=== PATIENT | male | born 1970 | race Caucasian/White ===

== ENCOUNTER 2016-06-04 12:11 | Inpatient (IN) | payer OTHER ==
[~2016-06-04] VITALS: Ht 188 cm; Wt 119.0 kg
[~2016-06-04 12:11] MED LIST: ALDACTONE25 MG PO; BG MC; CARVEDILOL3.125 M1; COLACE100 MG; COR6 PO; COUMADIN7.5 MG PO; DOC-Q-LACE100 MG PO; ECO81 PO; FAMOTIDINE20 MG PO; FLEXERIL10 MG PO; GLU500 PO; LASIX20 MG PO; LIO10 PO; LIPITOR40 MG; LIPITOR80 MG PO; LISINOPRIL2.5 MG PO; MOT600 PO; NOR10T PO; NORCO 5/325 TAB1 TA1 PO; PRI20 PO; PROAIR HFA0.09 MG/A1 INH; TYL325 PO; ZES10 PO; ZOC20 PO
[2016-06-04 13:13] LABS: BASOPHIL % 0.2 % (0-2); PLATELET COUNT 207 x10^3mcL (130-400)
[2016-06-04 13:26] LABS: RED CELL DISTRIBUTION WIDTH 21.2 % (11.5-14.5)
[2016-06-04 13:30] LABS: CALCIUM 8.9 mg/dL (8.5-10.1); CARBON DIOXIDE 26.6 mmol/L (21-32); CREATININE SERUM 1.5 mg/dL (0.7-1.3); POTASSIUM SERUM 4.6 mmol/L (3.5-5.1)
[2016-06-04 13:31] LABS: rbc morphology (normal/abnorm) ABNORMAL (NORMAL)
[2016-06-04 13:34] LABS: ALBUMIN 3.7 g/dL (3.4-5.0); BILIRUBIN TOTAL 1.01 mg/dL (0.20-1.00); TOTAL PROTEIN, SERUM 7.2 g/dL (6.4-8.2)
[2016-06-04 14:58] LABS: CHOLESTEROL/HDL RATIO 4.6; MAGNESIUM 1.9 mg/dL (1.8-2.4)
[2016-06-04 15:03] VITALS: BP 131/88
[2016-06-04 15:33] LABS: FREE T4 1.23 ng/dL (0.76-1.46); FREE THYROXINE INDEX 2.5 ug/dL (1.4-4.5); T4(THYROXINE) 6.8 ug/dL (4.7-13.3)
[2016-06-04 15:52] LABS: PHOSPHOROUS 3.6 mg/dL (2.5-4.9)
[2016-06-04 16:55] LABS: T3 TOTAL 1.11 ng/mL
[2016-06-04 18:53] VITALS: BP 147/95
[2016-06-04 21:22] VITALS: BP 132/90
[2016-06-04 23:38] LABS: UA SPECIFIC GRAVITY 1.025 (1.005-1.035); microscopic required? YES; urine erythrocyte 1+ (NEGATIVE)
[2016-06-04 23:49] LABS: AMPHETAMINE QUAL UR POSITIVE (NEG <=1000)
[2016-06-05 05:31] VITALS: BP 139/109
[2016-06-05 09:07] VITALS: BP 154/64
[2016-06-05 09:10] VITALS: BP 154/64
[2016-06-05 13:05] VITALS: BP 112/89
[2016-06-05 16:37] VITALS: BP 143/82
[2016-06-05 22:21] VITALS: BP 107/72
[2016-06-06 06:17] LABS: BASOPHIL % 0.3 % (0-2); PLATELET COUNT 257 x10^3mcL (130-400)
[2016-06-06 06:34] VITALS: BP 140/103
[2016-06-06 06:47] LABS: RED CELL DISTRIBUTION WIDTH 21.4 % (11.5-14.5)
[2016-06-06 06:57] LABS: CALCIUM 8.7 mg/dL (8.5-10.1); CARBON DIOXIDE 24.3 mmol/L (21-32); CREATININE SERUM 1.5 mg/dL (0.7-1.3); MAGNESIUM 1.9 mg/dL (1.8-2.4); PHOSPHOROUS 3.5 mg/dL (2.5-4.9); POTASSIUM SERUM 4.3 mmol/L (3.5-5.1)
[2016-06-06 15:00] VITALS: BP 122/88
[2016-06-06 21:31] VITALS: BP 110/83
[2016-06-07 05:52] VITALS: BP 127/89
[2016-06-07 06:18] LABS: BASOPHIL % 0.2 % (0-2); PLATELET COUNT 248 x10^3mcL (130-400)
[2016-06-07 06:32] LABS: CALCIUM 8.7 mg/dL (8.5-10.1); CARBON DIOXIDE 22.5 mmol/L (21-32); CHLORIDE SERUM 99 mmol/L (98-107); CREATININE SERUM 1.3 mg/dL (0.7-1.3); GFR1 > 60 mL/min; GLUCOSE SERUM 91 mg/dL (74-106); MAGNESIUM 1.9 mg/dL (1.8-2.4); PHOSPHOROUS 3.3 mg/dL (2.5-4.9); POTASSIUM SERUM 4.2 mmol/L (3.5-5.1); SODIUM SERUM 134 mmol/L (136-145)
[2016-06-07 06:37] LABS: RED CELL DISTRIBUTION WIDTH 20.9 % (11.5-14.5)
[2016-06-07 06:38] LABS: rbc morphology (normal/abnorm) ABNORMAL (NORMAL)
[2016-06-07 10:56] VITALS: BP 121/85
[2016-06-07 14:31] VITALS: BP 139/91
[2016-06-07 21:51] VITALS: BP 105/82
[2016-06-08 06:21] VITALS: BP 119/71
[2016-06-08 08:54] LABS: CALCIUM 8.4 mg/dL (8.5-10.1); CHLORIDE SERUM 93 mmol/L (98-107); CREATININE SERUM 1.2 mg/dL (0.7-1.3); GFR1 > 60 mL/min; GLUCOSE SERUM 168 mg/dL (74-106); POTASSIUM SERUM 3.9 mmol/L (3.5-5.1); SODIUM SERUM 127 mmol/L (136-145)
[2016-06-08 08:56] LABS: PLATELET COUNT 232 x10^3mcL (130-400)
[2016-06-08 09:05] LABS: RED CELL DISTRIBUTION WIDTH 21.2 % (11.5-14.5)
[2016-06-08 09:06] LABS: rbc morphology (normal/abnorm) ABNORMAL (NORMAL)
[2016-06-08 09:44] VITALS: BP 116/66
[2016-06-08 12:37] VITALS: BP 116/66
== END 2016-06-08 12:50 | disposition home or self-care (01) | DRG 203 ==
LOC: ED 12:11 → DU 14:15 → MU 06-07 17:58
PROVIDERS: Emergency Medicine; Family Medicine; ADMIT Family Medicine
DX: M94.0 Chondrocostal junction syndrome [Tietze] (principal); N17.0 Acute kidney failure with tubular necrosis; I50.43 Acute on chronic combined systolic (congestive) and diastolic (congestive) heart failure; I42.7 Cardiomyopathy due to drug and external agent; D68.69 Other thrombophilia; E11.65 Type 2 diabetes mellitus with hyperglycemia; G89.29 Other chronic pain; M54.9 Dorsalgia, unspecified; E78.5 Hyperlipidemia, unspecified; D63.8 Anemia in other chronic diseases classified elsewhere; F12.10 Cannabis abuse, uncomplicated; F15.20 Other stimulant dependence, uncomplicated; T43.621A Poisoning by amphetamines, accidental (unintentional), initial encounter; Y92.018 Other place in single-family (private) house as the place of occurrence of the external cause
CPT/HCPCS: 80307; 83880; 84439; J1940; J2270; J2405; J3010; J7030; J7120; J7620; Q0092

== ENCOUNTER 2016-06-27 20:02 | Emergency (ER) | payer OTHER ==
[2016-06-27 21:31] LABS: CALCIUM 8.5 mg/dL (8.5-10.1); CARBON DIOXIDE 23.7 mmol/L (21-32); CREATININE SERUM 1.7 mg/dL (0.7-1.3); POTASSIUM SERUM 3.9 mmol/L (3.5-5.1)
[2016-06-27 21:34] LABS: BASOPHIL % 0.2 % (0-2)
[2016-06-27 21:39] LABS: RED CELL DISTRIBUTION WIDTH 18.7 % (11.5-14.5)
[2016-06-27 21:46] LABS: BILIRUBIN TOTAL 0.75 mg/dL (0.20-1.00); TOTAL PROTEIN, SERUM 7.1 g/dL (6.4-8.2)
[2016-06-27 21:47] LABS: ALBUMIN 3.2 g/dL (3.4-5.0)
[2016-06-27 22:04] LABS: CK-MB 3.6 ng/mL (0-3.6)
[2016-06-27 22:14] LABS: PLATELET COUNT 274 x10^3mcL (130-400)
[2016-06-27 22:39] VITALS: BP 141/83
== END 2016-06-27 23:23 | disposition home or self-care (01) ==
LOC: ED 20:02
PROVIDERS: Emergency Medicine
DX: R07.89 Other chest pain (principal); R53.1 Weakness; G43.909 Migraine, unspecified, not intractable, without status migrainosus; I50.9 Heart failure, unspecified; I48.91 Unspecified atrial fibrillation; I42.9 Cardiomyopathy, unspecified; G89.29 Other chronic pain; Z90.5 Acquired absence of kidney
CPT/HCPCS: 83880; J2270

== ENCOUNTER → 2016-07-03 | Emergency (ER) | payer OTHER ==
[2016-07-03 22:06] LABS: BASOPHIL % 0.2 % (0-2); PLATELET COUNT 259 x10^3mcL (130-400)
[2016-07-03 22:19] LABS: CALCIUM 9.2 mg/dL (8.5-10.1); CARBON DIOXIDE 23.7 mmol/L (21-32); CREATININE SERUM 1.5 mg/dL (0.7-1.3); POTASSIUM SERUM 4.5 mmol/L (3.5-5.1)
[2016-07-03 22:23] LABS: ALBUMIN 3.7 g/dL (3.4-5.0); BILIRUBIN TOTAL 0.5 mg/dL (0.20-1.00); MAGNESIUM 2.1 mg/dL (1.8-2.4); TOTAL PROTEIN, SERUM 7.2 g/dL (6.4-8.2)
[2016-07-04 01:58] VITALS: BP 155/89
== END ==
LOC: ED 20:43
PROVIDERS: Emergency Medicine
DX: M54.12 Radiculopathy, cervical region (principal); I48.91 Unspecified atrial fibrillation; I42.9 Cardiomyopathy, unspecified; G43.909 Migraine, unspecified, not intractable, without status migrainosus; I50.9 Heart failure, unspecified; Z86.73 Personal history of transient ischemic attack (TIA), and cerebral infarction without residual deficits; Z88.8 Allergy status to other drugs, medicaments and biological substances
CPT/HCPCS: 83880; Q0092

== ENCOUNTER 2016-07-21 02:21 | Inpatient (IN) | payer MEDICAID ==
[2016-07-21] VITALS (7 sets, daily range): BP systolic 122–138; BP diastolic 83–105
[~2016-07-21] VITALS: Ht 188 cm; Wt 122.1 kg
[2016-07-21 03:00] LABS: BASOPHIL % 1.2 % (0-2); CALCIUM 8.5 mg/dL (8.5-10.1); CARBON DIOXIDE 22.7 mmol/L (21-32); CHLORIDE SERUM 108 mmol/L (98-107); CREATININE SERUM 1.3 mg/dL (0.7-1.3); GFR1 > 60 mL/min; GLUCOSE SERUM 121 mg/dL (74-106); PLATELET COUNT 192 x10^3mcL (130-400); POTASSIUM SERUM 4.2 mmol/L (3.5-5.1); SODIUM SERUM 139 mmol/L (136-145)
[2016-07-21 03:01] LABS: RED CELL DISTRIBUTION WIDTH 17.2 % (11.5-14.5)
[2016-07-21 03:16] LABS: ALKALINE PHOSPHATASE 118 U/L (46-116); ALT/SGPT 53 U/L (16-63); AST/SGOT 33 U/L (15-37); BILIRUBIN TOTAL 0.35 mg/dL (0.20-1.00); TOTAL PROTEIN, SERUM 6.9 g/dL (6.4-8.2)
[2016-07-21 03:24] LABS: ALBUMIN 3.3 g/dL (3.4-5.0)
[2016-07-21 03:26] LABS: CK-MB 2.2 ng/mL (0-3.6)
[2016-07-21] MEDS ORDERED: COREG12.5 MG PO (04:20)
[2016-07-21 05:00] LABS: CHOLESTEROL/HDL RATIO 3.2
[2016-07-21 05:10] LABS: FREE T4 0.98 ng/dL (0.76-1.46); FREE THYROXINE INDEX 2.2 ug/dL (1.4-4.5); T4(THYROXINE) 6.3 ug/dL (4.7-13.3)
[2016-07-21 05:11] LABS: T3 TOTAL 1.09 ng/mL
[2016-07-21 12:54] LABS: UA SPECIFIC GRAVITY 1.015 (1.005-1.035); microscopic required? YES; urine erythrocyte TRACE (NEGATIVE)
[2016-07-21 12:57] LABS: AMPHETAMINE QUAL UR NONE DETECTED (NEG <=1000)
[2016-07-22 04:35] VITALS: BP 140/94
[2016-07-22 05:53] LABS: BASOPHIL % 0.4 % (0-2); PLATELET COUNT 190 x10^3mcL (130-400)
[2016-07-22 06:18] LABS: CALCIUM 8.8 mg/dL (8.5-10.1); CARBON DIOXIDE 20.5 mmol/L (21-32); CHLORIDE SERUM 107 mmol/L (98-107); CREATININE SERUM 1.2 mg/dL (0.7-1.3); GFR1 > 60 mL/min; GLUCOSE SERUM 112 mg/dL (74-106); MAGNESIUM 1.7 mg/dL (1.8-2.4); PHOSPHOROUS 3.2 mg/dL (2.5-4.9); POTASSIUM SERUM 4.1 mmol/L (3.5-5.1); SODIUM SERUM 139 mmol/L (136-145)
[2016-07-22 06:34] LABS: RED CELL DISTRIBUTION WIDTH 16.6 % (11.5-14.5)
[2016-07-22 09:35] VITALS: BP 140/106
[2016-07-22 10:04] LABS: IRON 56 ug/dL (65-170); TOTAL IRON BINDING CAPACITY 396 ug/dL (250-450)
[2016-07-22 10:20] LABS: RED BLOOD CELLS 4.61 M/mm3 (4.52-5.90)
[2016-07-22 13:48] VITALS: BP 131/93
[2016-07-22 16:38] VITALS: BP 153/112
[2016-07-22 22:37] VITALS: BP 130/87
[2016-07-23 06:03] VITALS: BP 142/106
[2016-07-23 06:28] LABS: CALCIUM 8.9 mg/dL (8.5-10.1); CARBON DIOXIDE 23.3 mmol/L (21-32); CHLORIDE SERUM 106 mmol/L (98-107); CREATININE SERUM 1.2 mg/dL (0.7-1.3); GFR1 > 60 mL/min; GLUCOSE SERUM 109 mg/dL (74-106); MAGNESIUM 1.8 mg/dL (1.8-2.4); PHOSPHOROUS 3.7 mg/dL (2.5-4.9); POTASSIUM SERUM 4.1 mmol/L (3.5-5.1); SODIUM SERUM 138 mmol/L (136-145)
[2016-07-23 07:08] LABS: BASOPHIL % 0.5 % (0-2); PLATELET COUNT 213 x10^3mcL (130-400)
[2016-07-23 07:09] LABS: RED CELL DISTRIBUTION WIDTH 17.2 % (11.5-14.5)
[2016-07-23 08:56] VITALS: Ht 188 cm; Wt 122.1 kg
[2016-07-23 09:26] VITALS: BP 142/83
== END 2016-07-23 11:25 | disposition left against medical advice (07) | DRG 203 ==
LOC: ED 02:21 → DU 03:58
PROVIDERS: Emergency Medicine; Family Medicine; ADMIT Family Medicine
DX: R07.9 Chest pain, unspecified (principal); D68.69 Other thrombophilia; I42.7 Cardiomyopathy due to drug and external agent; E11.59 Type 2 diabetes mellitus with other circulatory complications; E11.65 Type 2 diabetes mellitus with hyperglycemia; K21.9 Gastro-esophageal reflux disease without esophagitis; E83.42 Hypomagnesemia; I48.91 Unspecified atrial fibrillation; D64.9 Anemia, unspecified; F12.10 Cannabis abuse, uncomplicated; F15.21 Other stimulant dependence, in remission; Z68.34 Body mass index [BMI] 34.0-34.9, adult; Z79.1 Long term (current) use of non-steroidal anti-inflammatories (NSAID); Z79.82 Long term (current) use of aspirin; Z79.84 Long term (current) use of oral hypoglycemic drugs; Z95.810 Presence of automatic (implantable) cardiac defibrillator; Z91.19 Patient's noncompliance with other medical treatment and regimen; Z59.0 Homelessness
CPT/HCPCS: 83880; 84439; C9113; G0480; J2060; J2270; J7030; J7620; Q0092; Q0163

== ENCOUNTER 2016-09-04 03:31 | Inpatient (IN) | payer OTHER ==
[~2016-09-04] VITALS: Ht 188 cm; Wt 122.5 kg
[~2016-09-04 03:31] MED LIST changes: +COREG12.5 MG PO
[2016-09-04 04:33] LABS: BASOPHIL % 0.3 % (0-2); PLATELET COUNT 243 x10^3mcL (130-400)
[2016-09-04 04:34] LABS: CALCIUM 8.8 mg/dL (8.5-10.1); CARBON DIOXIDE 22.7 mmol/L (21-32); CREATININE SERUM 1.4 mg/dL (0.7-1.3); POTASSIUM SERUM 4.3 mmol/L (3.5-5.1)
[2016-09-04 04:35] LABS: RED CELL DISTRIBUTION WIDTH 17.1 % (11.5-14.5)
[2016-09-04 04:43] LABS: ALBUMIN 3.4 g/dL (3.4-5.0); BILIRUBIN TOTAL 0.72 mg/dL (0.20-1.00); TOTAL PROTEIN, SERUM 7.1 g/dL (6.4-8.2)
[2016-09-04] MEDS ORDERED: CARVEDILOL6.25 M1 PO (05:47)
[2016-09-04] MEDS ORDERED: LISINOPRIL10 MG PO (05:50)
[2016-09-04 06:05] VITALS: BP 104/107
[2016-09-04 08:02] LABS: MAGNESIUM 1.9 mg/dL (1.8-2.4); PHOSPHOROUS 3.8 mg/dL (2.5-4.9)
[2016-09-04 08:04] LABS: CHOLESTEROL/HDL RATIO 3.4
[2016-09-04 09:37] VITALS: BP 141/104
[2016-09-04 11:58] LABS: FREE T4 1.11 ng/dL (0.76-1.46); FREE THYROXINE INDEX 3.1 ug/dL (1.4-4.5); T3 TOTAL 1.15 ng/mL; T4(THYROXINE) 7.6 ug/dL (4.7-13.3)
[2016-09-04 12:48] VITALS: BP 132/104
[2016-09-04 17:05] VITALS: BP 134/96
[2016-09-04 20:44] VITALS: BP 133/101
[2016-09-04 22:51] LABS: UA SPECIFIC GRAVITY >=1.030 (1.005-1.035); microscopic required? YES; urine erythrocyte TRACE (NEGATIVE)
[2016-09-04 22:58] LABS: AMPHETAMINE QUAL UR POSITIVE (NEG <=1000)
[2016-09-05] VITALS (8 sets, daily range): BP systolic 102–139; BP diastolic 72–104
[2016-09-05 06:26] LABS: BASOPHIL % 0.7 % (0-2); PLATELET COUNT 219 x10^3mcL (130-400)
[2016-09-05 06:40] LABS: CALCIUM 8.6 mg/dL (8.5-10.1); CARBON DIOXIDE 22.5 mmol/L (21-32); CREATININE SERUM 1.4 mg/dL (0.7-1.3); POTASSIUM SERUM 4.4 mmol/L (3.5-5.1); RED CELL DISTRIBUTION WIDTH 16.7 % (11.5-14.5)
[2016-09-05] MEDS ORDERED: GOOD SENSE ASPI81 M3 PO (21:56)
[2016-09-06] VITALS (8 sets, daily range): BP systolic 97–139; BP diastolic 63–98
[2016-09-06 09:17] LABS: BASOPHIL % 0.9 % (0-2); PLATELET COUNT 230 x10^3mcL (130-400)
[2016-09-06 09:18] LABS: RED CELL DISTRIBUTION WIDTH 16.5 % (11.5-14.5)
[2016-09-06 09:19] LABS: CALCIUM 8.7 mg/dL (8.5-10.1); CARBON DIOXIDE 22.6 mmol/L (21-32); CREATININE SERUM 1.5 mg/dL (0.7-1.3); POTASSIUM SERUM 4.7 mmol/L (3.5-5.1)
[2016-09-06] MEDS ORDERED: COUMADIN7.5 MG PO (17:34)
[2016-09-07 05:19] VITALS: BP 144/98
[2016-09-07 07:21] LABS: CALCIUM 8.8 mg/dL (8.5-10.1); CARBON DIOXIDE 22.2 mmol/L (21-32); CHLORIDE SERUM 101 mmol/L (98-107); CREATININE SERUM 1.3 mg/dL (0.7-1.3); GFR1 > 60 mL/min; GLUCOSE SERUM 102 mg/dL (74-106); SODIUM SERUM 131 mmol/L (136-145)
[2016-09-07 07:29] LABS: BASOPHIL % 0.7 % (0-2); PLATELET COUNT 237 x10^3mcL (130-400)
[2016-09-07 07:35] LABS: RED CELL DISTRIBUTION WIDTH 16.9 % (11.5-14.5)
[2016-09-07] MEDS ORDERED: ATIVAN1 MG PO (09:44)
[2016-09-07 10:11] VITALS: BP 99/65
== END 2016-09-07 14:15 | disposition home or self-care (01) | DRG 243 ==
LOC: ED 03:31 → DU 05:17
PROVIDERS: Emergency Medicine; Family Medicine; ADMIT Family Medicine
DX: K21.9 Gastro-esophageal reflux disease without esophagitis (principal); I42.7 Cardiomyopathy due to drug and external agent; D68.69 Other thrombophilia; E11.65 Type 2 diabetes mellitus with hyperglycemia; E11.59 Type 2 diabetes mellitus with other circulatory complications; T43.621D Poisoning by amphetamines, accidental (unintentional), subsequent encounter; F15.188 Other stimulant abuse with other stimulant-induced disorder; F12.10 Cannabis abuse, uncomplicated; E87.1 Hypo-osmolality and hyponatremia; I48.91 Unspecified atrial fibrillation; J44.9 Chronic obstructive pulmonary disease, unspecified; I10 Essential (primary) hypertension; E66.9 Obesity, unspecified; Z68.34 Body mass index [BMI] 34.0-34.9, adult; Z59.0 Homelessness; Z95.810 Presence of automatic (implantable) cardiac defibrillator; Z79.01 Long term (current) use of anticoagulants
CPT/HCPCS: 83880; 84439; J1170; J2060; J2270; J2405; Q0092

== ENCOUNTER 2016-09-17 07:28 | Emergency (ER) | payer OTHER ==
[~2016-09-17 07:28] MED LIST changes: +ATIVAN1 MG PO; +CARVEDILOL6.25 M1 PO; +GOOD SENSE ASPI81 M3 PO; +LISINOPRIL10 MG PO
[2016-09-17 08:26] LABS: BASOPHIL % 1.9 % (0-2); PLATELET COUNT 305 x10^3mcL (130-400)
[2016-09-17 08:32] LABS: CALCIUM 8.4 mg/dL (8.5-10.1); CARBON DIOXIDE 22.5 mmol/L (21-32); CREATININE SERUM 1.4 mg/dL (0.7-1.3); POTASSIUM SERUM 4.2 mmol/L (3.5-5.1)
[2016-09-17 08:36] LABS: BILIRUBIN TOTAL 0.9 mg/dL (0.20-1.00); PHOSPHOROUS 3.2 mg/dL (2.5-4.9); RED CELL DISTRIBUTION WIDTH 18.3 % (11.5-14.5); URIC ACID 8.8 mg/dL (3.5-7.2)
[2016-09-17 08:38] LABS: ALBUMIN 3.1 g/dL (3.4-5.0)
[2016-09-17 13:57] VITALS: BP 151/101
== END 2016-09-17 14:32 | disposition home or self-care (01) ==
LOC: ED 07:28
PROVIDERS: Emergency Medicine
DX: I50.9 Heart failure, unspecified (principal); I11.0 Hypertensive heart disease with heart failure; G89.29 Other chronic pain; Z88.8 Allergy status to other drugs, medicaments and biological substances
CPT/HCPCS: 36415; 83880; Q0092

== ENCOUNTER 2016-10-03 23:41 | Emergency (ER) | payer OTHER ==
[2016-10-04 01:56] LABS: PLATELET COUNT 217 x10^3mcL (130-400)
[2016-10-04 01:57] LABS: BASOPHIL % 0.1 % (0-2)
[2016-10-04 02:04] LABS: CARBON DIOXIDE 23.4 mmol/L (21-32); CREATININE SERUM 1.5 mg/dL (0.7-1.3); POTASSIUM SERUM 4.4 mmol/L (3.5-5.1)
[2016-10-04 02:09] LABS: ALBUMIN 3.4 g/dL (3.4-5.0); BILIRUBIN TOTAL 0.73 mg/dL (0.20-1.00); TOTAL PROTEIN, SERUM 7.3 g/dL (6.4-8.2)
[2016-10-04 04:06] VITALS: BP 114/88
== END 2016-10-04 04:06 | disposition home or self-care (01) ==
LOC: ED 23:41
PROVIDERS: Emergency Medicine
DX: N20.0 Calculus of kidney (principal); I11.0 Hypertensive heart disease with heart failure; I48.91 Unspecified atrial fibrillation; I50.9 Heart failure, unspecified; G43.909 Migraine, unspecified, not intractable, without status migrainosus; I42.9 Cardiomyopathy, unspecified; Z95.1 Presence of aortocoronary bypass graft; Z88.6 Allergy status to analgesic agent
CPT/HCPCS: 36415; J2270; Q0092

== ENCOUNTER 2016-10-21 17:19 | Inpatient (IN) | payer OTHER ==
[~2016-10-21] VITALS: Ht 188 cm; Wt 110.0 kg
[2016-10-21 22:37] LABS: BASOPHIL % 0.6 % (0-2); PLATELET COUNT 206 x10^3mcL (130-400)
[2016-10-21] MEDS ORDERED: XARELTO STARTER20 MG (22:42)
[2016-10-21 22:49] LABS: CALCIUM 8.7 mg/dL (8.5-10.1); CARBON DIOXIDE 24.4 mmol/L (21-32); CREATININE SERUM 1.6 mg/dL (0.7-1.3)
[2016-10-21 22:50] LABS: RED CELL DISTRIBUTION WIDTH 19.4 % (11.5-14.5)
[2016-10-21 23:00] LABS: ALBUMIN 3.5 g/dL (3.4-5.0); BILIRUBIN TOTAL 0.98 mg/dL (0.20-1.00); TOTAL PROTEIN, SERUM 7.5 g/dL (6.4-8.2)
[2016-10-22 00:16] VITALS: BP 143/75
[2016-10-22 00:20] VITALS: BP 143/75
[2016-10-22 00:57] LABS: MAGNESIUM 1.8 mg/dL (1.8-2.4); PHOSPHOROUS 3.7 mg/dL (2.5-4.9)
[2016-10-22 00:59] LABS: CHOLESTEROL/HDL RATIO 4.6
[2016-10-22 01:07] LABS: T3 TOTAL 1.11 ng/mL
[2016-10-22 01:10] LABS: FREE T4 1.18 ng/dL (0.76-1.46); FREE THYROXINE INDEX 2.6 ug/dL (1.4-4.5); T4(THYROXINE) 6.6 ug/dL (4.7-13.3)
[2016-10-22 05:52] VITALS: BP 140/73
[2016-10-22 08:27] LABS: BASOPHIL % 0.9 % (0-2); PLATELET COUNT 190 x10^3mcL (130-400)
[2016-10-22 08:35] LABS: CALCIUM 8.7 mg/dL (8.5-10.1); CARBON DIOXIDE 20.5 mmol/L (21-32); CHLORIDE SERUM 106 mmol/L (98-107); CREATININE SERUM 1.3 mg/dL (0.7-1.3); GFR1 > 60 mL/min; GLUCOSE SERUM 93 mg/dL (74-106); POTASSIUM SERUM 3.6 mmol/L (3.5-5.1); SODIUM SERUM 137 mmol/L (136-145)
[2016-10-22 09:48] LABS: RED CELL DISTRIBUTION WIDTH 18.8 % (11.5-14.5)
[2016-10-22 10:00] VITALS: BP 144/79
[2016-10-22 17:18] VITALS: BP 118/73
[2016-10-22 21:25] VITALS: BP 124/98
[2016-10-22 23:17] LABS: microscopic required? YES; urine erythrocyte NEGATIVE (NEGATIVE)
[2016-10-22 23:35] LABS: AMPHETAMINE QUAL UR POSITIVE (NEG <=1000)
[2016-10-23 06:00] VITALS: BP 140/85
[2016-10-23 06:32] LABS: BASOPHIL % 0.7 % (0-2); PLATELET COUNT 171 x10^3mcL (130-400)
[2016-10-23 06:35] LABS: RED CELL DISTRIBUTION WIDTH 19.1 % (11.5-14.5)
[2016-10-23 13:42] VITALS: BP 130/92
[2016-10-23 18:00] VITALS: BP 144/94
[2016-10-23 21:14] VITALS: BP 112/79
[2016-10-24 06:25] VITALS: BP 128/89
[2016-10-24 08:16] LABS: BASOPHIL % 0.6 % (0-2); PLATELET COUNT 181 x10^3mcL (130-400)
[2016-10-24 08:17] LABS: RED CELL DISTRIBUTION WIDTH 18.8 % (11.5-14.5)
[2016-10-24 08:22] LABS: CALCIUM 8.3 mg/dL (8.5-10.1); CARBON DIOXIDE 26.5 mmol/L (21-32); CHLORIDE SERUM 104 mmol/L (98-107); CREATININE SERUM 1.3 mg/dL (0.7-1.3); GFR1 > 60 mL/min; GLUCOSE SERUM 102 mg/dL (74-106); POTASSIUM SERUM 4.3 mmol/L (3.5-5.1); SODIUM SERUM 137 mmol/L (136-145)
[2016-10-24 08:54] VITALS: BP 113/79
[2016-10-24 14:19] VITALS: BP 124/90
[2016-10-24 16:44] VITALS: BP 124/901
[2016-10-24 16:56] VITALS: BP 121/74
[2016-10-24 20:50] VITALS: BP 135/88
[2016-10-25 05:54] VITALS: BP 127/78
[2016-10-25 06:32] LABS: BASOPHIL % 0.4 % (0-2); PLATELET COUNT 211 x10^3mcL (130-400)
[2016-10-25 06:36] LABS: RED CELL DISTRIBUTION WIDTH 19.3 % (11.5-14.5)
[2016-10-25 07:03] LABS: CALCIUM 8.8 mg/dL (8.5-10.1); CARBON DIOXIDE 27.9 mmol/L (21-32); CHLORIDE SERUM 103 mmol/L (98-107); CREATININE SERUM 1.2 mg/dL (0.7-1.3); GFR1 > 60 mL/min; GLUCOSE SERUM 90 mg/dL (74-106); POTASSIUM SERUM 4.4 mmol/L (3.5-5.1); SODIUM SERUM 137 mmol/L (136-145)
[2016-10-25 08:49] VITALS: BP 149/99
[2016-10-25 13:42] VITALS: BP 133/85
[2016-10-25 16:58] VITALS: BP 126/76
[2016-10-25 20:41] VITALS: BP 127/86
[2016-10-26 05:25] VITALS: BP 119/86
[2016-10-26 06:17] LABS: BASOPHIL % 1.3 % (0-2); PLATELET COUNT 177 x10^3mcL (130-400)
[2016-10-26 06:20] LABS: RED CELL DISTRIBUTION WIDTH 19.2 % (11.5-14.5)
[2016-10-26 08:51] VITALS: BP 143/92
[2016-10-26 13:54] VITALS: BP 143/87
[2016-10-26 15:43] VITALS: BP 135/83
[2016-10-26 22:25] VITALS: BP 122/70
[2016-10-27 06:37] LABS: BASOPHIL % 1.1 % (0-2); PLATELET COUNT 186 x10^3mcL (130-400)
[2016-10-27 06:40] LABS: RED CELL DISTRIBUTION WIDTH 18.8 % (11.5-14.5)
[2016-10-27 09:26] VITALS: Ht 188 cm; Wt 110.0 kg
[2016-10-27] MEDS ORDERED: TRE400 PO (09:42)
[2016-10-27] MEDS ORDERED: COL100 PO (09:49)
[2016-10-27] MEDS ORDERED: HYDROCODONE BIT1 T30 PO (10:23)
[2016-10-27 13:05] VITALS: BP 144/96
[2016-10-27 13:18] VITALS: BP 130/86
== END 2016-10-27 15:45 | disposition home or self-care (01) | DRG 351 ==
LOC: ED 17:19 → DU 22:39
PROVIDERS: Emergency Medicine; Family Medicine; ADMIT Family Medicine
PROC: 05HM33Z Insertion of Infusion Device into Right Internal Jugular Vein, Percutaneous Approach (ICD-10-PCS; principal; 2016-10-23)
DX: T79.A22A Traumatic compartment syndrome of left lower extremity, initial encounter (principal); N17.0 Acute kidney failure with tubular necrosis; I42.9 Cardiomyopathy, unspecified; Q61.3 Polycystic kidney, unspecified; E11.51 Type 2 diabetes mellitus with diabetic peripheral angiopathy without gangrene; I48.2 Chronic atrial fibrillation; I65.22 Occlusion and stenosis of left carotid artery; E11.65 Type 2 diabetes mellitus with hyperglycemia; J44.9 Chronic obstructive pulmonary disease, unspecified; F15.10 Other stimulant abuse, uncomplicated; F12.10 Cannabis abuse, uncomplicated; F10.10 Alcohol abuse, uncomplicated; E66.9 Obesity, unspecified; Z68.31 Body mass index [BMI] 31.0-31.9, adult; Z95.0 Presence of cardiac pacemaker; Z79.01 Long term (current) use of anticoagulants; X58.XXXA Exposure to other specified factors, initial encounter
CPT/HCPCS: 83880; 84439; 97110-GP; G0480; J1170; J1642; J1644; J2060; J2270; J2405; J3010; J7030; Q0092; Q9967

== ENCOUNTER 2016-12-26 21:21 | Emergency (ER) | payer OTHER ==
[~2016-12-26] VITALS: Ht 188 cm; Wt 117.9 kg
[~2016-12-26 21:21] MED LIST changes: +COL100 PO; +HYDROCODONE BIT1 T30 PO; +TRE400 PO; +XARELTO STARTER20 MG
[2016-12-26 22:53] LABS: BASOPHIL % 0.8 % (0-2); PLATELET COUNT 238 x10^3mcL (130-400)
[2016-12-26 22:59] LABS: RED CELL DISTRIBUTION WIDTH 20.7 % (11.5-14.5)
[2016-12-26 23:00] LABS: CALCIUM 8.9 mg/dL (8.5-10.1); CARBON DIOXIDE 20.3 mmol/L (21-32); CREATININE SERUM 1.7 mg/dL (0.7-1.3); POTASSIUM SERUM 4.4 mmol/L (3.5-5.1)
[2016-12-26 23:10] LABS: ALBUMIN 3.6 g/dL (3.4-5.0); BILIRUBIN TOTAL 1.9 mg/dL (0.20-1.00)
[2016-12-26 23:11] LABS: ovalocyte/elliptocyte 1+; rbc morphology (normal/abnorm) ABNORMAL (NORMAL)
[2016-12-27 00:17] VITALS: BP 115/82
== END 2016-12-27 00:17 | disposition home or self-care (01) ==
LOC: ED 21:21
PROVIDERS: Emergency Medicine
DX: R07.89 Other chest pain (principal); R20.2 Paresthesia of skin; G43.909 Migraine, unspecified, not intractable, without status migrainosus; G89.29 Other chronic pain; M54.9 Dorsalgia, unspecified; I11.0 Hypertensive heart disease with heart failure; I50.9 Heart failure, unspecified; I48.91 Unspecified atrial fibrillation; I42.9 Cardiomyopathy, unspecified; Q60.0 Renal agenesis, unilateral; Z86.79 Personal history of other diseases of the circulatory system; Z88.8 Allergy status to other drugs, medicaments and biological substances; Z95.0 Presence of cardiac pacemaker
CPT/HCPCS: 36415; 83880; J0780; J1200; Q0092

== ENCOUNTER 2017-01-17 16:35 | Inpatient (IN) | payer OTHER ==
[~2017-01-17] VITALS: Ht 185.4 cm; Wt 97.5 kg
--- NOTE | 2017-01-17 19:11 | NUR ---
DR CERVANTES AT BEDSIDE FOR MSE.
[2017-01-17] MEDS ORDERED: FUROSEMIDE20 MG PO (19:53)
[2017-01-17 19:57] LABS: BASOPHIL % 0.5 % (0-2); PLATELET COUNT 253 x10^3mcL (130-400)
[2017-01-17 20:05] LABS: CALCIUM 8.9 mg/dL (8.5-10.1); CARBON DIOXIDE 20.8 mmol/L (21-32); CHLORIDE SERUM 107 mmol/L (98-107); CREATININE SERUM 1.2 mg/dL (0.7-1.3); GFR1 > 60 mL/min; GLUCOSE SERUM 108 mg/dL (74-106); POTASSIUM SERUM 5.1 mmol/L (3.5-5.1); SODIUM SERUM 135 mmol/L (136-145)
[2017-01-17 20:09] LABS: ALBUMIN 3.4 g/dL (3.4-5.0); ALKALINE PHOSPHATASE 124 U/L (46-116); ALT/SGPT 60 U/L (16-63); AST/SGOT 45 U/L (15-37); BILIRUBIN TOTAL 0.78 mg/dL (0.20-1.00); RED CELL DISTRIBUTION WIDTH 22.6 % (11.5-14.5)
--- NOTE | 2017-01-17 20:36 | NUR ---
REPORT CALLED TO RANDEE ESCOBAR TO ASSUME CARE OF PT POST TRANSFER TO [facility].
[2017-01-17 20:57] LABS: FREE T4 0.81 ng/dL (0.76-1.46); FREE THYROXINE INDEX 2.4 ug/dL (1.4-4.5); T3 TOTAL 1.04 ng/mL; T4(THYROXINE) 6.4 ug/dL (4.7-13.3)
[2017-01-17 21:01] LABS: tear drop cell (dacryocyte) 1+
[2017-01-17 21:02] LABS: rbc morphology (normal/abnorm) ABNORMAL (NORMAL)
[2017-01-17 21:10] LABS: PHOSPHOROUS 3.2 mg/dL (2.5-4.9)
--- NOTE | 2017-01-17 21:18 | NUR ---
REC'D PT FROM ER VIA [facility]. PT IS AAOX4. TELE #36 SR WITH BBB. DENIES CP. RESP EVEN AND UNLABORED. NO SOB NOTED. MULTIPLE OPEN AND DRY SCABS NOTED TO BUE. IV NOTED TO . ORIENTED PT TO CALL LIGHT. BED IN LOWEST POSITION. WILL ENDORSE TO PRIMARY RN.
--- NOTE | 2017-01-17 21:20 | NUR ---
RECEIVED REPORT FROM ED AND RESOURCE RN MARCIA. NO C/O PAIN AT THIS TIME. NO DISTRESS NOTED. IV SITE TO LEFT HAND NOTED, PATENT AND INTACT. BED IN LOWEST POSITION. CALL LIGHT WITHIN REACH. WILL CONTINUE TO MONITOR.
[2017-01-17 21:29] VITALS: BP 127/89
[2017-01-17 21:51] LABS: TOTAL PROTEIN, SERUM 7.9 g/dL (6.4-8.2)
--- NOTE | 2017-01-18 05:11 | NUR ---
PATIENT RESTED THROUGHOUT THE NIGHT. NO C/O CHEST PAIN SINCE ARRIVING ON UNIT. NO DISTRESS NOTED. ALL NEEDS MET. SAFETY AND COMFORT MEASURES MAINTAINED. BED IN LOWEST POSITION. CALL LIGHT WITHIN REACH. WILL CONTINUE TO MONITOR AND ENDORSE CARE TO NEXT SHIFT NURSE.
[2017-01-18 06:17] VITALS: BP 126/86
--- NOTE | 2017-01-18 06:18 | NUR ---
PATIENT REFUSES TO WEAR SCD'S.
[2017-01-18 07:17] LABS: BASOPHIL % 0.8 % (0-2); PLATELET COUNT 254 x10^3mcL (130-400)
[2017-01-18 07:18] LABS: microscopic required? NO
[2017-01-18 07:19] LABS: RED CELL DISTRIBUTION WIDTH 22.9 % (11.5-14.5)
[2017-01-18 07:21] LABS: rbc morphology (normal/abnorm) ABNORMAL (NORMAL); tear drop cell (dacryocyte) 1+
[2017-01-18 07:30] LABS: CALCIUM 9.5 mg/dL (8.5-10.1); CARBON DIOXIDE 22.8 mmol/L (21-32); CREATININE SERUM 1.4 mg/dL (0.7-1.3); POTASSIUM SERUM 4.7 mmol/L (3.5-5.1)
--- NOTE | 2017-01-18 07:40 | NUR ---
RC'D PT RESTING IN BED. A/A/O/X4, SPEECH CLEAR AND APPROPRIATE. ON TELE WITH SR WITH BBB. DENIES CHEST PAIN/PRESSURE. PALP PULSES, NO EDEMA NOTED. RESPIRATIONS EQUAL AND UNLABORED. LUNGS CTA. ON RA, DENIES SOB. ABDOMEN SOFT AND NONTENDER. ACTIVE BS. DENIES N/V. VOIDS FREELY, DENIES BURNING. AMBULATORY WITH BRP. SKIN W/D. BUE DRY SCABS NOTED. DENIES PAIN AT THIS TIME. IV PATENT AND INFUSING. BED IN LOW POSITION. CALL LIGHT IN REACH. PT EDUCATED ON USING CALL LIGHT WHEN NEEDING ASSISTANCE. VERBALIZED UNDERSTANDING. WILL CONTINUE TO MONITOR.
[2017-01-18 08:05] LABS: urine erythrocyte NEGATIVE (NEGATIVE)
[2017-01-18 08:11] LABS: AMPHETAMINE QUAL UR POSITIVE (NEG <=1000)
--- NOTE | 2017-01-18 09:45 | NUR ---
AM MEDICATIONS GIVEN. PT TOLERATED WELL. CALL LIGHT IN REACH. WILL CONTINUE TO MONITOR
[2017-01-18 09:56] VITALS: BP 107/63
[2017-01-18 11:14] VITALS: Ht 185.4 cm; Wt 97.5 kg
--- NOTE | 2017-01-18 12:41 | NUR ---
PT RESTING IN BED WITH NO APPARENT SIGNS OF DISTRESS. RESPIRATIONS EQUAL AND UNLABORED BILAT. CALL LIGHT IN REACH. WILL CONTINUE TO MONITOR.
[2017-01-18 14:19] VITALS: BP 121/88
[2017-01-18 17:27] VITALS: BP 108/72
--- NOTE | 2017-01-18 19:00 | NUR ---
PT RESTING IN BED. PT AWARE THAT HE IS CURRENTLY NPO DUE PENDING US OF THE ABDOMEN . ON TELE, DENIES CHEST PAIN/PRESSURE. RESPIRATIONS EQUAL AND UNLABORED. IV PATENT AND INFUSING. BED IN LOW POSITION. CALL LIGHT IN REACH. WILL ENDORSE TO FLOWER SHOP MANAGER RN.
--- NOTE | 2017-01-18 19:40 | NUR ---
PT RESTING IN BED APPEARS TO BE DROWSY BUT RESPONDS TO VERBAL STIMULI. PT BECOMES AGITATED AND APPEARS TO BE BOTHERED WHEN SPOKEN TO. PT AWAITING HIS ABD US AND WOULD LIKE TO EAT HIS DINNER AFTERWARDS. NO INDICATION OF DISTRESS NOTED. PT DENIES PAIN, CHEST DISCOMFORT OR SOB AT THIS TIME. IV FLUID INFUSING PER MD ORDER. IV SITE PATENT AND INTACT. NO REDNESS, SWELLING OR PAIN NOTED AT SITE. ALL SAFETY MEASURES ENSURED. CALL LIGHT AND PERSONAL BELONGINGS WITHIN REACH. WILL CONTINUE TO MONITOR.
[2017-01-18 21:00] VITALS: BP 127/85
--- NOTE | 2017-01-19 01:59 | NUR ---
PT SLEEPING AT THIS TIME. NO DISTRESS NOTED. BREATHING NON-LABORED WITH NO DIFFICULTY NOTED. SAFETY MEASURES ENSURED. CALL LIGHT AND PERSONAL BELONGINGS WITHIN REACH. WILL CONTINUE TO MONITOR.
[2017-01-19 05:17] VITALS: BP 108/69
--- NOTE | 2017-01-19 06:33 | NUR ---
PT SLEPT THROUGH MAJORITY OF NIGHT KEEPING INTERRUPTIONS TO A MINIMUM PER PT REQUEST TO NOT BE WOKEN UP OR BOTHERED. NO ACUTE CHANGES IN CONDITION NOTED THROUGH THE NIGHT. NO C/O OF CHEST PAIN OR SOB NOTED. ALL NEEDS ASSESSED AND MET. IV FLUIDS INFUSING PER MD ORDER. IV SITE PATENT AND INTACT. PT ATE 75% OF HIS DINNER AFTER US ABD WAS COMPLETED. PT WAS ALSO GIVEN SNACKS AROUND 0430 THIS MORNING PER PT REQUEST. ALL SAFETY MEASURES MAINTAINED. CALL LIGHT AND PERSONAL BELONGINGS WITHIN REACH. WILL CONTINUE TO MONITOR.
--- NOTE | 2017-01-19 07:30 | NUR ---
RECEIVED PATIENT RESTING IN BED A/O X4, CLEAR SPEECH, DENIES LEGGETT OR DIZZINESS AT THIS TIME. TELE # [address], C/O PRESSURE LIKE CHEST PAIN 09/19 OFFERED NITRO SL (SEE eMAR) BUT PATIENT REFUSED, WILL MEDICATE PATIENT WITH NORCO FOR CHEST PAIN (SEE eMAR). PATIENT IS BREATHING EVEN UNLABBORED ON RA, DENIES SOB, NO DISTRESS NOTED. IV TO LH INTACT INFUSING NS AT 20 ML/HR FREE FROM REDNESS AND INFILTRATION. PATIENT IS CALM AT THIS TIME. INSTRUCTED TO CALL FOR ASSISTANCE IF NEEDED. SAFETY PRECAUTIONS MAINTAINED. WILL MONITOR.
[2017-01-19 09:45] VITALS: BP 129/86
--- NOTE | 2017-01-19 10:00 | NUR ---
ROUNDS MADE- DR. OSULLIVAN, RESIDENT TEAM, CHARGE NURSE AND PRIMARY NURSE AT BEDSIDE. POC REVIEWED- PATIENT MAY BE DISCHARGED HOME TODAY. WILL MONITOR.
--- NOTE | 2017-01-19 12:24 | NUR ---
DR. GELLER AT BEDSIDE TO SPEAK WITH PATIENT REGARDING PLAN OF CARE. DR. GELLER WILL SPEAK WITH CM REGARDING AVAILABLE RESOURCES/REHAB FOR PATIENT. ALL QUESTIONS AND CONCERNS ADDRESSED. WILL MONITOR.
--- NOTE | 2017-01-19 14:00 | NUR ---
PATIENT C/O PRESSURE LIKE CHEST PAIN 5/10, NORCO 7.5/325 1 TAB PO Q4H PRN GIVEN AT THIS TIME. ALL NEEDS ATTENDED TO. SAFETY PRECAUTIONS MAINTAINED. WILL MONITOR.
[2017-01-19] MEDS ORDERED: TYL325 PO (14:34)
[2017-01-19 14:35] VITALS: BP 111/75
[2017-01-19 14:46] VITALS: BP 111/75
--- NOTE | 2017-01-19 15:15 | NUR ---
DR. GELLER AT BEDSIDE TO SPEAK WITH PATIENT REGARDING DISCHARGE ORDERS. ALL QUESTIONS AND CONCERNS ADDRESSED. PATIENT IS STABLE FOR DISCHARGE HOME TODAY. DISCHARGE INSTRUCTIONS, BELONGINGS LIST AND EDUCATION GIVEN TO PATIENT. ALL QUESTIONS AND CONCERNS ADDRESSED. SPOKE WITH RACHEL FIELD SALES EXECUTIVE AND WILL PROVIDE PATIENT WITH BUS PASS. IV TO LH REMOVED, CATH INTACT. INSTRUCTED PATIENT TO NOTIFY STAFF ONCE HE IS READY TO BE ASSISTED DOWN TO LOBBY. WILL MONITOR.
--- NOTE | 2017-01-19 15:30 | NUR ---
PATIENT IN STABLE CONDITION NO DISTRESS NOTED. TELE MONITOR REMOVED, ID BANDS REMOVED. PATIENT ASSISTED DOWN TO LOBBY VIA WHEELCHAIR ACCOMPANIED BY NURSE AID. BUS PASSESS PROVIDED AND GIVEN TO PATIENT. ALL PERSONAL BELONGINGS SENT HOME WITH PATIENT.
== END 2017-01-19 15:30 | disposition home or self-care (01) | DRG 194 ==
LOC: ED 16:35 → DU 19:29
PROVIDERS: Emergency Medicine; Student in an Organized Health Care Education/Training Program; ADMIT Family Medicine
DX: I50.43 Acute on chronic combined systolic (congestive) and diastolic (congestive) heart failure (principal); N17.0 Acute kidney failure with tubular necrosis; Q60.0 Renal agenesis, unilateral; E87.1 Hypo-osmolality and hyponatremia; I42.9 Cardiomyopathy, unspecified; I48.2 Chronic atrial fibrillation; F15.188 Other stimulant abuse with other stimulant-induced disorder; F12.10 Cannabis abuse, uncomplicated; E11.9 Type 2 diabetes mellitus without complications; E78.5 Hyperlipidemia, unspecified; Z86.14 Personal history of Methicillin resistant Staphylococcus aureus infection; Z95.810 Presence of automatic (implantable) cardiac defibrillator; Z86.73 Personal history of transient ischemic attack (TIA), and cerebral infarction without residual deficits; Z79.01 Long term (current) use of anticoagulants; Z79.82 Long term (current) use of aspirin; Z79.891 Long term (current) use of opiate analgesic; Z59.0 Homelessness; Z68.28 Body mass index [BMI] 28.0-28.9, adult
CPT/HCPCS: 83880; 84439; 85378; G0480; J1200; J1940; J2270; J7030; Q0092

== ENCOUNTER 2017-03-16 16:19 | Inpatient (IN) | payer OTHER ==
[~2017-03-16] VITALS: Ht 185.4 cm; Wt 94.8 kg
[~2017-03-16 16:19] MED LIST changes: +FUROSEMIDE20 MG PO
[2017-03-16 17:33] LABS: BASOPHIL % 0.8 % (0-2); PLATELET COUNT 314 x10^3mcL (130-400)
[2017-03-16 17:35] LABS: CARBON DIOXIDE 26.4 mmol/L (21-32); CREATININE SERUM 1.6 mg/dL (0.7-1.3); POTASSIUM SERUM 4.1 mmol/L (3.5-5.1)
[2017-03-16 17:40] LABS: RED CELL DISTRIBUTION WIDTH 21.2 % (11.5-14.5)
[2017-03-16 17:41] LABS: ALBUMIN 3.7 g/dL (3.4-5.0); BILIRUBIN TOTAL 1.03 mg/dL (0.20-1.00); TOTAL PROTEIN, SERUM 7.8 g/dL (6.4-8.2)
[2017-03-16] MEDS ORDERED: XARELTO20 M1 (19:48)
[2017-03-16 20:08] VITALS: BP 136/90
[2017-03-16 20:08] LABS: AMPHETAMINE QUAL UR POSITIVE (NEG <=1000)
[2017-03-16 20:10] LABS: UA SPECIFIC GRAVITY 1.025 (1.005-1.035); microscopic required? YES; urine erythrocyte NEGATIVE (NEGATIVE)
[2017-03-16 20:19] LABS: T3 TOTAL 0.84 ng/mL
[2017-03-16 20:34] LABS: CHOLESTEROL/HDL RATIO 3.5; MAGNESIUM 2.2 mg/dL (1.8-2.4); PHOSPHOROUS 3.5 mg/dL (2.5-4.9)
[2017-03-16 20:42] LABS: FREE T4 1.03 ng/dL (0.76-1.46); FREE THYROXINE INDEX 2.4 ug/dL (1.4-4.5); T4(THYROXINE) 6.4 ug/dL (4.7-13.3)
[2017-03-17 06:10] LABS: PLATELET COUNT 248 x10^3mcL (130-400)
[2017-03-17 06:13] VITALS: BP 122/81
[2017-03-17 06:16] LABS: CALCIUM 8.3 mg/dL (8.5-10.1); CARBON DIOXIDE 25.6 mmol/L (21-32); CHLORIDE SERUM 104 mmol/L (98-107); CREATININE SERUM 1.3 mg/dL (0.7-1.3); GFR1 > 60 mL/min; GLUCOSE SERUM 128 mg/dL (74-106); SODIUM SERUM 136 mmol/L (136-145)
[2017-03-17 06:24] LABS: RED CELL DISTRIBUTION WIDTH 21.5 % (11.5-14.5)
[2017-03-17 09:38] VITALS: BP 144/96
[2017-03-17 12:26] VITALS: BP 125/86
[2017-03-17 16:01] VITALS: Ht 185.4 cm; Wt 94.8 kg
[2017-03-17 16:22] VITALS: BP 110/73
[2017-03-17 22:03] VITALS: BP 119/77
[2017-03-18 05:30] VITALS: BP 125/90
[2017-03-18 06:45] LABS: CALCIUM 8.6 mg/dL (8.5-10.1); CARBON DIOXIDE 24.7 mmol/L (21-32); CHLORIDE SERUM 105 mmol/L (98-107); CREATININE SERUM 1.3 mg/dL (0.7-1.3); GFR1 > 60 mL/min; GLUCOSE SERUM 92 mg/dL (74-106); MAGNESIUM 1.9 mg/dL (1.8-2.4); POTASSIUM SERUM 4.1 mmol/L (3.5-5.1); SODIUM SERUM 138 mmol/L (136-145)
[2017-03-18 08:09] LABS: BASOPHIL % 0.8 % (0-2); PLATELET COUNT 269 x10^3mcL (130-400); RED CELL DISTRIBUTION WIDTH 21.5 % (11.5-14.5)
[2017-03-18 09:17] VITALS: BP 121/74
[2017-03-18 13:07] VITALS: BP 118/83
[2017-03-18 17:05] VITALS: BP 112/80
[2017-03-18 21:48] VITALS: BP 116/77
[2017-03-19 00:56] VITALS: BP 108/75
[2017-03-19 05:38] VITALS: BP 115/77
[2017-03-19 05:56] LABS: BASOPHIL % 0.9 % (0-2); PLATELET COUNT 299 x10^3mcL (130-400)
[2017-03-19 06:05] LABS: RED CELL DISTRIBUTION WIDTH 21.4 % (11.5-14.5)
[2017-03-19 06:25] LABS: CALCIUM 8.9 mg/dL (8.5-10.1); CARBON DIOXIDE 25.3 mmol/L (21-32); CREATININE SERUM 1.4 mg/dL (0.7-1.3); POTASSIUM SERUM 4.1 mmol/L (3.5-5.1)
[2017-03-19 07:09] LABS: rbc morphology (normal/abnorm) ABNORMAL (NORMAL)
[2017-03-19 10:34] VITALS: BP 117/72
[2017-03-19 13:45] VITALS: BP 116/81
[2017-03-19 21:26] VITALS: BP 102/69
[2017-03-20 05:18] VITALS: BP 100/65
[2017-03-20 09:16] LABS: CALCIUM 9.4 mg/dL (8.5-10.1); CARBON DIOXIDE 23.8 mmol/L (21-32); CREATININE SERUM 1.5 mg/dL (0.7-1.3); MAGNESIUM 2.1 mg/dL (1.8-2.4); POTASSIUM SERUM 4.5 mmol/L (3.5-5.1)
[2017-03-20 09:49] VITALS: BP 111/78
[2017-03-20 09:52] LABS: BASOPHIL % 0.7 % (0-2); PLATELET COUNT 285 x10^3mcL (130-400)
[2017-03-20 09:53] LABS: RED CELL DISTRIBUTION WIDTH 21.1 % (11.5-14.5)
[2017-03-20] MEDS ORDERED: HIB240 TOP (09:53)
[2017-03-20 09:54] LABS: rbc morphology (normal/abnorm) ABNORMAL (NORMAL)
[2017-03-20] MEDS ORDERED: BACTROBAN21 (09:54)
[2017-03-20 12:42] VITALS: BP 111/78
[2017-03-20 12:57] VITALS: BP 130/91
== END 2017-03-20 14:12 | disposition home or self-care (01) | DRG 194 ==
LOC: ED 16:19 → DU 19:12
PROVIDERS: Emergency Medicine; Family Medicine
DX: I11.0 Hypertensive heart disease with heart failure (principal); N17.0 Acute kidney failure with tubular necrosis; K21.9 Gastro-esophageal reflux disease without esophagitis; I50.43 Acute on chronic combined systolic (congestive) and diastolic (congestive) heart failure; E11.51 Type 2 diabetes mellitus with diabetic peripheral angiopathy without gangrene; N28.1 Cyst of kidney, acquired; K76.0 Fatty (change of) liver, not elsewhere classified; I48.0 Paroxysmal atrial fibrillation; G89.29 Other chronic pain; I42.0 Dilated cardiomyopathy; R74.0 Nonspecific elevation of levels of transaminase and lactic acid dehydrogenase [LDH]; F12.10 Cannabis abuse, uncomplicated; F15.188 Other stimulant abuse with other stimulant-induced disorder; Z95.0 Presence of cardiac pacemaker; Z79.01 Long term (current) use of anticoagulants; Z79.82 Long term (current) use of aspirin; Z88.8 Allergy status to other drugs, medicaments and biological substances; Z86.14 Personal history of Methicillin resistant Staphylococcus aureus infection
CPT/HCPCS: 83880; 84439; G0480; J1200; J2270; J7030; Q0092; Q0163

== ENCOUNTER 2017-06-11 17:42 | Emergency (ER) | payer SELFPAY ==
[~2017-06-11] VITALS: Ht 188 cm; Wt 117.0 kg
[~2017-06-11 17:42] MED LIST changes: +BACTROBAN21; +HIB240 TOP; +XARELTO20 M1
[2017-06-11 17:52] VITALS: Ht 188 cm; Wt 117.0 kg
[2017-06-11 18:46] LABS: BASOPHIL % 0.7 % (0-2); PLATELET COUNT 149 x10^3mcL (130-400)
[2017-06-11 18:49] LABS: RED CELL DISTRIBUTION WIDTH 19.1 % (11.5-14.5)
[2017-06-11 19:01] LABS: CALCIUM 8.3 mg/dL (8.5-10.1); CARBON DIOXIDE 25.7 mmol/L (21-32); CHLORIDE SERUM 109 mmol/L (98-107); CREATININE SERUM 1.2 mg/dL (0.7-1.3); GFR1 > 60 mL/min; GLUCOSE SERUM 127 mg/dL (74-106); SODIUM SERUM 141 mmol/L (136-145)
[2017-06-11 19:04] VITALS: BP 136/93
[2017-06-11 19:05] LABS: ALBUMIN 3.4 g/dL (3.4-5.0); ALKALINE PHOSPHATASE 94 U/L (46-116); ALT/SGPT 23 U/L (16-63); AST/SGOT 29 U/L (15-37); BILIRUBIN TOTAL 0.32 mg/dL (0.20-1.00); TOTAL PROTEIN, SERUM 6.9 g/dL (6.4-8.2)
== END 2017-06-11 18:45 | disposition short-term general hospital (02) ==
LOC: ED 17:42
PROVIDERS: Emergency Medicine
DX: I63.9 Cerebral infarction, unspecified (principal); R07.89 Other chest pain; I10 Essential (primary) hypertension; G89.29 Other chronic pain; M54.9 Dorsalgia, unspecified; Z88.6 Allergy status to analgesic agent
CPT/HCPCS: 83880

== ENCOUNTER 2017-07-21 18:55 | Inpatient (IN) | payer SELFPAY ==
[~2017-07-21] VITALS: Ht 185.4 cm; Wt 128.9 kg
[2017-07-21 19:08] VITALS: Ht 185.4 cm; Wt 128.9 kg
[2017-07-21 20:57] LABS: BASOPHIL % 1.6 % (0-2); PLATELET COUNT 179 x10^3mcL (130-400)
[2017-07-21 21:02] LABS: RED CELL DISTRIBUTION WIDTH 18.5 % (11.5-14.5)
[2017-07-21 21:16] LABS: UA SPECIFIC GRAVITY >=1.030 (1.005-1.035); microscopic required? YES; urine erythrocyte NEGATIVE (NEGATIVE)
[2017-07-21 21:19] LABS: ALBUMIN 3.9 g/dL (3.4-5.0); ALKALINE PHOSPHATASE 102 U/L (46-116); ALT/SGPT 31 U/L (16-63); AST/SGOT 29 U/L (15-37); BILIRUBIN TOTAL 0.5 mg/dL (0.20-1.00); CALCIUM 8.7 mg/dL (8.5-10.1); CARBON DIOXIDE 24.9 mmol/L (21-32); CHLORIDE SERUM 108 mmol/L (98-107); CREATININE SERUM 1.3 mg/dL (0.7-1.3); GFR1 > 60 mL/min; GLUCOSE SERUM 91 mg/dL (74-106); LIPASE 155 IU/L (73-393); POTASSIUM SERUM 4.4 mmol/L (3.5-5.1); SODIUM SERUM 142 mmol/L (136-145); TOTAL PROTEIN, SERUM 7.5 g/dL (6.4-8.2)
[2017-07-21 21:25] LABS: AMPHETAMINE QUAL UR NONE DETECTED (See below)
[2017-07-22] MEDS ORDERED: LISINOPRIL10 MG PO (00:10)
[2017-07-22] MEDS ORDERED: ASPIR 8181 MG PO (00:11)
[2017-07-22] MEDS ORDERED: FUROSEMIDE40 MG PO (00:11)
[2017-07-22] MEDS ORDERED: CARVEDILOL3.125 M1 PO (00:11)
[2017-07-22 00:52] VITALS: BP 147/108
[2017-07-22] MEDS ORDERED: XARELTO10 M1 PO (01:20)
[2017-07-22 01:46] LABS: MAGNESIUM 2.2 mg/dL (1.8-2.4); PHOSPHOROUS 3.3 mg/dL (2.5-4.9)
[2017-07-22 01:47] LABS: CHOLESTEROL/HDL RATIO 3.9
[2017-07-22 01:54] LABS: FREE T4 0.87 ng/dL (0.76-1.46); FREE THYROXINE INDEX 2.1 ug/dL (1.4-4.5); T4(THYROXINE) 6.1 ug/dL (4.7-13.3)
[2017-07-22 03:12] LABS: T3 TOTAL 1.27 ng/mL
[2017-07-22 05:27] VITALS: BP 139/97
[2017-07-22 07:45] LABS: CALCIUM 8.5 mg/dL (8.5-10.1); CARBON DIOXIDE 26.4 mmol/L (21-32); CREATININE SERUM 1.4 mg/dL (0.7-1.3); MAGNESIUM 2.1 mg/dL (1.8-2.4); PHOSPHOROUS 3.9 mg/dL (2.5-4.9); POTASSIUM SERUM 4.1 mmol/L (3.5-5.1)
[2017-07-22 07:50] LABS: BASOPHIL % 0.8 % (0-2); PLATELET COUNT 177 x10^3mcL (130-400)
[2017-07-22 07:55] LABS: RED CELL DISTRIBUTION WIDTH 18.4 % (11.5-14.5)
[2017-07-22 08:10] VITALS: BP 132/85
[2017-07-22 12:57] VITALS: BP 137/99
[2017-07-22 15:35] VITALS: BP 137/99
== END 2017-07-22 16:10 | disposition home or self-care (01) | DRG 291 ==
LOC: ED 18:55 → CANBEDREQ 23:47 → DU 07-22 00:03
PROVIDERS: Emergency Medicine; Family Medicine
DX: I11.0 Hypertensive heart disease with heart failure (principal); N17.0 Acute kidney failure with tubular necrosis; E87.1 Hypo-osmolality and hyponatremia; K21.9 Gastro-esophageal reflux disease without esophagitis; I50.43 Acute on chronic combined systolic (congestive) and diastolic (congestive) heart failure; I42.0 Dilated cardiomyopathy; G89.29 Other chronic pain; M54.9 Dorsalgia, unspecified; I48.0 Paroxysmal atrial fibrillation; F12.10 Cannabis abuse, uncomplicated; Z53.29 Procedure and treatment not carried out because of patient's decision for other reasons; Z95.810 Presence of automatic (implantable) cardiac defibrillator; Z56.0 Unemployment, unspecified; Z90.5 Acquired absence of kidney; G43.909 Migraine, unspecified, not intractable, without status migrainosus; E66.9 Obesity, unspecified; N28.1 Cyst of kidney, acquired; D64.9 Anemia, unspecified; Z68.33 Body mass index [BMI] 33.0-33.9, adult; Z23 Encounter for immunization
CPT/HCPCS: 83880; 84439; 97535-GP; J1940; J2270; Q0092; Q0163

== ENCOUNTER 2017-09-18 06:04 | Inpatient (IN) | payer MEDICAID ==
[~2017-09-18] VITALS: Ht 188 cm; Wt 120.2 kg
[~2017-09-18 06:04] MED LIST changes: +ASPIR 8181 MG PO; +CARVEDILOL3.125 M1 PO; +FUROSEMIDE40 MG PO; +XARELTO10 M1 PO
[2017-09-18 06:39] LABS: BASOPHIL % 0.5 % (0-2); PLATELET COUNT 155 x10^3mcL (130-400); RED CELL DISTRIBUTION WIDTH 13.8 % (11.5-14.5)
[2017-09-18 06:50] LABS: UA SPECIFIC GRAVITY >=1.030 (1.005-1.035); microscopic required? YES; urine erythrocyte NEGATIVE (NEGATIVE)
[2017-09-18 06:55] LABS: CALCIUM 8.4 mg/dL (8.5-10.1); CARBON DIOXIDE 20.1 mmol/L (21-32); CREATININE SERUM 1.4 mg/dL (0.7-1.3); POTASSIUM SERUM 3.7 mmol/L (3.5-5.1)
[2017-09-18 06:59] LABS: ALBUMIN 3.5 g/dL (3.4-5.0); BILIRUBIN TOTAL 0.41 mg/dL (0.20-1.00); TOTAL PROTEIN, SERUM 6.8 g/dL (6.4-8.2)
[2017-09-18 07:00] LABS: AMPHETAMINE QUAL UR NONE DETECTED (See below)
[2017-09-18 08:13] LABS: MAGNESIUM 1.9 mg/dL (1.8-2.4); PHOSPHOROUS 2.4 mg/dL (2.5-4.9)
[2017-09-18 08:17] VITALS: BP 138/97
[2017-09-18 08:18] LABS: T3 TOTAL 1.14 ng/mL
[2017-09-18 08:31] LABS: FREE T4 0.99 ng/dL (0.76-1.46); FREE THYROXINE INDEX 2.1 ug/dL (1.4-4.5); T4(THYROXINE) 6.1 ug/dL (4.7-13.3)
[2017-09-18] MEDS ORDERED: SIMVASTATIN40 M1 PO (12:35)
[2017-09-18] MEDS ORDERED: POTASSIUM CHLOR8 MEQ PO (12:37)
[2017-09-18] MEDS ORDERED: CARVEDILOL3.125 M1 PO (12:41)
[2017-09-18 13:54] VITALS: BP 107/69
[2017-09-18 17:54] VITALS: BP 131/97
[2017-09-18 21:17] VITALS: BP 135/97
[2017-09-19 05:11] VITALS: BP 113/79
[2017-09-19 08:54] VITALS: BP 126/84
[2017-09-19 09:23] LABS: BASOPHIL % 1.5 % (0-2); PLATELET COUNT 174 x10^3mcL (130-400); RED CELL DISTRIBUTION WIDTH 13.6 % (11.5-14.5)
[2017-09-19 09:42] LABS: CALCIUM 8.6 mg/dL (8.5-10.1); CARBON DIOXIDE 23.6 mmol/L (21-32); CREATININE SERUM 1.5 mg/dL (0.7-1.3); PHOSPHOROUS 2.8 mg/dL (2.5-4.9); POTASSIUM SERUM 3.8 mmol/L (3.5-5.1)
[2017-09-19 12:19] VITALS: BP 120/83
[2017-09-19 16:50] VITALS: BP 110/68
[2017-09-19 20:13] VITALS: BP 110/72
[2017-09-20 05:48] VITALS: BP 96/66
[2017-09-20] MEDS ORDERED: COR3 PO (07:15)
[2017-09-20] MEDS ORDERED: ALDACTONE25 MG PO (07:16)
[2017-09-20] MEDS ORDERED: L40 PO (07:17)
[2017-09-20 08:50] VITALS: BP 111/63
[2017-09-20 11:01] VITALS: BP 111/63
== END 2017-09-20 11:39 | disposition home or self-care (01) | DRG 194 ==
LOC: ED 06:04 → DU 07:24
PROVIDERS: Emergency Medicine; Family Medicine
DX: I11.0 Hypertensive heart disease with heart failure (principal); N17.0 Acute kidney failure with tubular necrosis; I50.23 Acute on chronic systolic (congestive) heart failure; E11.9 Type 2 diabetes mellitus without complications; M94.0 Chondrocostal junction syndrome [Tietze]; I42.9 Cardiomyopathy, unspecified; I48.0 Paroxysmal atrial fibrillation; R80.9 Proteinuria, unspecified; F15.10 Other stimulant abuse, uncomplicated; F12.10 Cannabis abuse, uncomplicated; Q60.0 Renal agenesis, unilateral; Z68.34 Body mass index [BMI] 34.0-34.9, adult; F17.210 Nicotine dependence, cigarettes, uncomplicated; Z95.810 Presence of automatic (implantable) cardiac defibrillator; Z22.322 Carrier or suspected carrier of Methicillin resistant Staphylococcus aureus
CPT/HCPCS: 83880; 84439; 99406; J1200; J1940; J2270; J7030; Q0092

== ENCOUNTER 2017-10-20 01:37 | Inpatient (IN) | payer MEDICAID ==
[~2017-10-20] VITALS: Ht 188 cm; Wt 121.6 kg
[~2017-10-20 01:37] MED LIST changes: +COR3 PO; +L40 PO; +POTASSIUM CHLOR8 MEQ PO; +SIMVASTATIN40 M1 PO
[2017-10-20 01:42] VITALS: Ht 188 cm; Wt 121.6 kg
[2017-10-20 03:05] LABS: CALCIUM 8.8 mg/dL (8.5-10.1); CARBON DIOXIDE 23.3 mmol/L (21-32); CHLORIDE SERUM 107 mmol/L (98-107); CREATININE SERUM 1.5 mg/dL (0.7-1.3); GFR1 54 mL/min; GLUCOSE SERUM 96 mg/dL (74-106); POTASSIUM SERUM 3.6 mmol/L (3.5-5.1); SODIUM SERUM 139 mmol/L (136-145)
[2017-10-20 03:09] LABS: BASOPHIL % 0.8 % (0-2); PLATELET COUNT 151 x10^3mcL (130-400); RED CELL DISTRIBUTION WIDTH 13.1 % (11.5-14.5)
[2017-10-20 03:10] LABS: ALBUMIN 3.8 g/dL (3.4-5.0); ALKALINE PHOSPHATASE 99 U/L (46-116); ALT/SGPT 31 U/L (16-63); AST/SGOT 34 U/L (15-37); BILIRUBIN TOTAL 0.89 mg/dL (0.20-1.00); CHOLESTEROL 217 mg/dL (<200); CHOLESTEROL/HDL RATIO 4.3; HDL CHOLESTEROL 51 mg/dL (40-60); LIPASE 110 IU/L (73-393); TOTAL PROTEIN, SERUM 7.9 g/dL (6.4-8.2); TRIGLYCERIDES 219 mg/dL (<150)
[2017-10-20 03:17] LABS: T3 TOTAL 1.04 ng/mL
[2017-10-20 03:20] LABS: FREE T4 0.93 ng/dL (0.76-1.46); FREE THYROXINE INDEX 2.3 ug/dL (1.4-4.5); T4(THYROXINE) 6.6 ug/dL (4.7-13.3)
[2017-10-20 04:14] LABS: microscopic required? YES; urine erythrocyte NEGATIVE (NEGATIVE)
[2017-10-20 04:26] LABS: MAGNESIUM 1.8 mg/dL (1.8-2.4)
[2017-10-20 04:29] LABS: AMPHETAMINE QUAL UR NONE DETECTED (See below)
[2017-10-20 05:04] VITALS: BP 139/87
[2017-10-20 06:11] VITALS: BP 139/87
[2017-10-20 09:38] VITALS: BP 124/75
[2017-10-20 12:57] VITALS: BP 118/76
[2017-10-20 17:57] VITALS: BP 104/69
[2017-10-20 20:57] VITALS: BP 111/70
[2017-10-21 05:03] VITALS: BP 128/76
[2017-10-21 06:16] LABS: CALCIUM 8.9 mg/dL (8.5-10.1); CARBON DIOXIDE 23.2 mmol/L (21-32); CREATININE SERUM 1.6 mg/dL (0.7-1.3); POTASSIUM SERUM 3.7 mmol/L (3.5-5.1)
[2017-10-21 06:24] LABS: BASOPHIL % 0.6 % (0-2); PLATELET COUNT 165 x10^3mcL (130-400); RED CELL DISTRIBUTION WIDTH 14.1 % (11.5-14.5)
[2017-10-21 09:20] VITALS: BP 107/66
[2017-10-21 11:47] VITALS: BP 103/65
== END 2017-10-21 13:07 | disposition home or self-care (01) | DRG 194 ==
LOC: ED 01:37 → DU 04:16
PROVIDERS: Internal Medicine; Specialist
DX: I11.0 Hypertensive heart disease with heart failure (principal); N17.0 Acute kidney failure with tubular necrosis; I50.23 Acute on chronic systolic (congestive) heart failure; M94.0 Chondrocostal junction syndrome [Tietze]; E11.65 Type 2 diabetes mellitus with hyperglycemia; I48.0 Paroxysmal atrial fibrillation; I42.8 Other cardiomyopathies; F15.10 Other stimulant abuse, uncomplicated; R80.9 Proteinuria, unspecified; E78.5 Hyperlipidemia, unspecified; Q60.0 Renal agenesis, unilateral; Z68.34 Body mass index [BMI] 34.0-34.9, adult; Z79.01 Long term (current) use of anticoagulants; Z95.810 Presence of automatic (implantable) cardiac defibrillator; Z86.73 Personal history of transient ischemic attack (TIA), and cerebral infarction without residual deficits
CPT/HCPCS: 82962; 83880; 84439; G0480; J1200; J1940; J7030; J7620; Q0092; Q0163

== ENCOUNTER 2017-11-06 20:25 | Inpatient (IN) | payer MEDICAID ==
[~2017-11-06] VITALS: Ht 188 cm; Wt 125.4 kg
[2017-11-06 20:33] VITALS: Ht 188 cm; Wt 125.4 kg
[2017-11-06 22:39] LABS: BASOPHIL % 1.2 % (0-2); PLATELET COUNT 183 x10^3mcL (130-400)
[2017-11-06 23:01] LABS: CALCIUM 8.8 mg/dL (8.5-10.1); CARBON DIOXIDE 21.2 mmol/L (21-32); CHLORIDE SERUM 106 mmol/L (98-107); CREATININE SERUM 1.2 mg/dL (0.7-1.3); GFR1 > 60 mL/min; GLUCOSE SERUM 86 mg/dL (74-106); POTASSIUM SERUM 3.5 mmol/L (3.5-5.1); SODIUM SERUM 139 mmol/L (136-145)
[2017-11-06 23:06] LABS: ALBUMIN 3.8 g/dL (3.4-5.0); ALKALINE PHOSPHATASE 97 U/L (46-116); ALT/SGPT 29 U/L (16-63); AST/SGOT 27 U/L (15-37); BILIRUBIN TOTAL 0.5 mg/dL (0.20-1.00); TOTAL PROTEIN, SERUM 7.5 g/dL (6.4-8.2)
[2017-11-07 00:07] LABS: microscopic required? NO
[2017-11-07 00:29] LABS: urine erythrocyte NEGATIVE (NEGATIVE)
[2017-11-07 01:04] VITALS: BP 143/92
[2017-11-07 01:13] LABS: CHOLESTEROL/HDL RATIO 4.3; PHOSPHOROUS 2.2 mg/dL (2.5-4.9)
[2017-11-07 01:14] LABS: AMPHETAMINE QUAL UR NONE DETECTED (See below)
[2017-11-07 01:23] LABS: T3 TOTAL 0.89 ng/mL
[2017-11-07 01:30] LABS: FREE T4 0.97 ng/dL (0.76-1.46); FREE THYROXINE INDEX 2.3 ug/dL (1.4-4.5)
[2017-11-07 05:11] VITALS: BP 129/76
[2017-11-07 06:34] LABS: CALCIUM 8.6 mg/dL (8.5-10.1); CARBON DIOXIDE 24.3 mmol/L (21-32); CHLORIDE SERUM 103 mmol/L (98-107); CREATININE SERUM 1.3 mg/dL (0.7-1.3); GFR1 > 60 mL/min; GLUCOSE SERUM 100 mg/dL (74-106); MAGNESIUM 1.9 mg/dL (1.8-2.4); PHOSPHOROUS 3.3 mg/dL (2.5-4.9); POTASSIUM SERUM 3.6 mmol/L (3.5-5.1); SODIUM SERUM 139 mmol/L (136-145)
[2017-11-07 07:22] LABS: BASOPHIL % 0.6 % (0-2); PLATELET COUNT 170 x10^3mcL (130-400); RED CELL DISTRIBUTION WIDTH 14.4 % (11.5-14.5)
[2017-11-07 09:05] VITALS: BP 114/76
[2017-11-07 12:17] VITALS: BP 127/86
[2017-11-07 14:27] VITALS: BP 127/86
== END 2017-11-07 16:30 | disposition home or self-care (01) | DRG 205 ==
LOC: ED 20:25 → DU 23:34
PROVIDERS: Emergency Medicine; Internal Medicine
DX: I42.8 Other cardiomyopathies (principal); I50.23 Acute on chronic systolic (congestive) heart failure; Q60.0 Renal agenesis, unilateral; E11.65 Type 2 diabetes mellitus with hyperglycemia; I11.0 Hypertensive heart disease with heart failure; I48.0 Paroxysmal atrial fibrillation; F15.10 Other stimulant abuse, uncomplicated; E78.5 Hyperlipidemia, unspecified; F12.10 Cannabis abuse, uncomplicated; Z68.34 Body mass index [BMI] 34.0-34.9, adult; Z79.84 Long term (current) use of oral hypoglycemic drugs; Z95.810 Presence of automatic (implantable) cardiac defibrillator
CPT/HCPCS: 82962; 83880; 84439; J1940; J7030; Q0092; Q0163

== ENCOUNTER 2018-02-12 08:13 | Observation (INO) | payer OTHER ==
[~2018-02-12] VITALS: Ht 188 cm; Wt 133.9 kg
[2018-02-12 08:48] LABS: PLATELET COUNT 151 x10^3mcL (130-400); RED CELL DISTRIBUTION WIDTH 14.1 % (11.5-14.5)
[2018-02-12 09:05] LABS: CALCIUM 8.4 mg/dL (8.5-10.1); CARBON DIOXIDE 22.9 mmol/L (21-32); CREATININE SERUM 1.4 mg/dL (0.7-1.3)
[2018-02-12 09:09] LABS: ALBUMIN 3.5 g/dL (3.4-5.0); BILIRUBIN TOTAL 0.32 mg/dL (0.20-1.00); TOTAL PROTEIN, SERUM 7.7 g/dL (6.4-8.2)
[2018-02-12 09:14] LABS: FREE T4 0.79 ng/dL (0.76-1.46); FREE THYROXINE INDEX 2.2 ug/dL (1.4-4.5)
[2018-02-12 09:21] LABS: T3 TOTAL 1.01 ng/mL
[2018-02-12 10:03] LABS: microscopic required? NO
[2018-02-12 10:26] LABS: UA SPECIFIC GRAVITY >=1.030 (1.005-1.035); urine erythrocyte NEGATIVE (NEGATIVE)
[2018-02-12 10:55] LABS: AMPHETAMINE QUAL UR NONE DETECTED (See below)
[2018-02-12 12:34] LABS: MAGNESIUM 2.1 mg/dL (1.8-2.4); PHOSPHOROUS 2.8 mg/dL (2.5-4.9)
[2018-02-12 13:20] VITALS: BP 151/90
[2018-02-12] MEDS ORDERED: CLOPIDOGREL75 M1 PO (13:46)
[2018-02-12] MEDS ORDERED: FUROSEMIDE40 MG PO (13:48)
[2018-02-12] MEDS ORDERED: CARVEDILOL6.25 M1 PO (13:49)
[2018-02-12 16:45] VITALS: BP 129/83
[2018-02-12 20:43] VITALS: BP 130/79
[2018-02-13 06:18] VITALS: BP 131/77
[2018-02-13 08:12] LABS: BASOPHIL % 0.4 % (0-2); PLATELET COUNT 168 x10^3mcL (130-400); RED CELL DISTRIBUTION WIDTH 14.3 % (11.5-14.5)
[2018-02-13 08:22] LABS: CALCIUM 8.4 mg/dL (8.5-10.1); CARBON DIOXIDE 27.3 mmol/L (21-32); CREATININE SERUM 1.4 mg/dL (0.7-1.3); POTASSIUM SERUM 3.7 mmol/L (3.5-5.1)
[2018-02-13 09:26] VITALS: BP 153/76
[2018-02-13 09:35] VITALS: Ht 188 cm; Wt 133.9 kg
[2018-02-13 12:54] VITALS: BP 152/101
[2018-02-13 17:30] VITALS: BP 137/77
[2018-02-13 17:47] VITALS: BP 137/77
== END 2018-02-13 18:10 | disposition home or self-care (01) | DRG 198 ==
LOC: ED 08:13 → DU 10:47
PROVIDERS: Specialist; ADMIT Family Medicine
DX: I24.9 Acute ischemic heart disease, unspecified (principal); N17.9 Acute kidney failure, unspecified; D68.69 Other thrombophilia; I11.0 Hypertensive heart disease with heart failure; I50.22 Chronic systolic (congestive) heart failure; I48.91 Unspecified atrial fibrillation; E78.5 Hyperlipidemia, unspecified; F15.21 Other stimulant dependence, in remission; Z87.891 Personal history of nicotine dependence; Z86.73 Personal history of transient ischemic attack (TIA), and cerebral infarction without residual deficits; Z90.5 Acquired absence of kidney; Z59.0 Homelessness; Z79.01 Long term (current) use of anticoagulants; Z79.82 Long term (current) use of aspirin; Z95.0 Presence of cardiac pacemaker
CPT/HCPCS: 83880; 84439; G0378; J1200; J2270; J2405; J7030; Q0163

== ENCOUNTER 2018-02-26 18:38 | Inpatient (IN) | payer OTHER ==
[~2018-02-26] VITALS: Ht 188 cm; Wt 125.4 kg
[~2018-02-26 18:38] MED LIST changes: +CLOPIDOGREL75 M1 PO
[2018-02-26 18:43] VITALS: Ht 188 cm; Wt 125.4 kg
--- NOTE | 2018-02-26 18:54 | NUR ---
PT CAME TO THE ED TODAY WITH CO CHEST PRESSURE 9/10 RADIATING TO L ARM X 30 MIN ROLLER CLEANER. PT HAS HX OF SAME AND AFIB, CARIDIOMYOPATHY, AND CHF. PT STATES HAVING DIFFICULTY WITH BREATHING WELL. PT IS HOOKED UP TO FULL MONITORS, EKG DONE AT BEDSIDE, PT PLACED ON 2 L NC 22 G STARTED TO RFA. PT IS AWAKE AND ALERT. HOOKED UP TO FULL MONITORS, SIDE RAILS UP, WILL CONTINUE TO MONITOR.
--- NOTE | 2018-02-26 19:06 | NUR ---
REPORT GIVEN TO MIGDALIA ESCOBAR FOR FURTHER CARE OF PT.
[2018-02-26 19:25] LABS: BASOPHIL % 0.5 % (0-2); PLATELET COUNT 177 x10^3mcL (130-400); RED CELL DISTRIBUTION WIDTH 14.2 % (11.5-14.5)
[2018-02-26 19:35] LABS: CALCIUM 8.7 mg/dL (8.5-10.1); CARBON DIOXIDE 23.7 mmol/L (21-32); CREATININE SERUM 1.5 mg/dL (0.7-1.3); POTASSIUM SERUM 4.2 mmol/L (3.5-5.1)
[2018-02-26 19:39] LABS: BILIRUBIN TOTAL 0.34 mg/dL (0.20-1.00); TOTAL PROTEIN, SERUM 7.2 g/dL (6.4-8.2)
[2018-02-26 19:40] LABS: ALBUMIN 3.3 g/dL (3.4-5.0)
--- NOTE | 2018-02-26 20:07 | NUR ---
PT AAOX4, WATCHING TV, RESP E/U, IN NO ACUTE DISTRESS.
--- NOTE | 2018-02-26 21:18 | NUR ---
PT REQUESTING BENADRYL AND PAIN MEDICATION. DR GOMES MADE AWARE.
--- NOTE | 2018-02-26 21:42 | NUR ---
REPORT GIVEN TO LUZ ALANIS TO ASSUME CARE OF THE PT.
--- NOTE | 2018-02-26 22:05 | NUR ---
RECEIVED PT FROM ED VIA [facility], CAME IN DUE TO CHEST PAIN. AAOX4. C/O DOUBLE VISION. ABLE TO FOLLOW COMMANDS. C/O SOB, LUNG SOUNDS CTA, O2 SAT=95% ON LPM/NC. STATED THAT HE HAS 9/10 PRESSURE MID-CHEST PAIN RADIATING TO THE LEFT ARM. W/ AICD ([employer]) ON THE LEFT LOWER CHEST. C/O NUMBNESS ON THE LEFT HAND. STATED THAT HE HAS DIARRHEAL EPISODES TODAY (X4 EPISODES). DENIES ABDOMINAL PAIN/NAUSEA/VOMITING. ABDOMEN IS SOFT. VOIDS. W/ ECCHYMOSIS ON THE LOWER ABDOMEN. IV SITE PATENT AND INTACT. PT REFUSED TO HAVE SKIN ASSESSMENT ON THE LEGS AND BUTTOCKS AREA. PADDED SIDE RAILS UPX2. CALL LIGHT ON REACH. ENDORSED TO PRIMARY NURSE ZEKE FOR CONTINUITY OF CARE
[2018-02-26 22:09] LABS: CHOLESTEROL/HDL RATIO 3.8; MAGNESIUM 1.7 mg/dL (1.8-2.4); PHOSPHOROUS 2.2 mg/dL (2.5-4.9)
[2018-02-26 22:15] LABS: T3 TOTAL 1.07 ng/mL
[2018-02-26 22:17] LABS: FREE T4 1.1 ng/dL (0.76-1.46); FREE THYROXINE INDEX 2.8 ug/dL (1.4-4.5); T4(THYROXINE) 7.2 ug/dL (4.7-13.3)
[2018-02-26 22:18] VITALS: BP 122/88
--- NOTE | 2018-02-26 22:28 | NUR ---
DR ROY INFORMED ABOUT PATIENT NEEDING DIET AND ALSO ABOUT IVF RATE AT 100 ML/HR. WITH CHECK.
--- NOTE | 2018-02-26 23:03 | NUR ---
DR MCLAUGHLIN AT PATIENT BEDSIDE, EXAMINED AND UDPATED WITH PLAN OF CARE. IV HEPLOCK TO RT FOREARM DIFFICULT TO FLUSH. INSERTED NEW SITE TO LEFT FOREARM. STARTED IVF OF NS AT 50 ML/HR. PATIENT GIVEN PEANUT BUTTER JELLY SANDWICH AND APPLE JUICE GIVEN.
--- NOTE | 2018-02-26 23:37 | NUR ---
CLAIMED PAIN IS STILL THERE AT 06/19, STATED NORCO DOESNT USUALLY GETS RELIEF FROM NORCO.
--- NOTE | 2018-02-27 00:16 | NUR ---
PATIENT COMPLAINED OF CHEST PAINS, TD=332/64, MAP=77, HR=84BPM. MEDICATED PRN AND MADE COMFORTABLE IN BED. WILL CONTINUE TO MONITOR.
--- NOTE | 2018-02-27 04:46 | NUR ---
COMPLAINED OF CHEST PAINS, XI=535/76, HR=95. WILL CHECK EFFECTIVENESS.
--- NOTE | 2018-02-27 05:29 | NUR ---
IVF RATE ADJUSTED TO 20 ML/HR PER NEW ORDER.
[2018-02-27 05:41] VITALS: BP 110/76
--- NOTE | 2018-02-27 05:54 | NUR ---
RE-CHECKED EFFECTIVENESS OF MED STATED PAIN IS SLOWLY SUBSIDING. WILL CONTINUE TO MONITOR.
--- NOTE | 2018-02-27 06:33 | NUR ---
PATIENT SLEPT OFF AND ON SINCE ARRIVAL TO THE FLOOR, WAS MEDICATED FOR CHEST PAIN RECEIVED RELIEF. O2 AT 2LNC MAINTAINED. NON COMPLIANT AT TIMES. INSTRUCTED AND EDUCATED ABOUT FLUID RESTRICTION. SR ON THE MONITOR. CONTACT ISOLATION FOR HX; MRSA /NARES OBSERVED AND MAINTAINED. WILL ENDORSE CONTTINUITY OF CARE TO INCOMING NURSE.
[2018-02-27 07:08] LABS: BASOPHIL % 0.5 % (0-2); PLATELET COUNT 173 x10^3mcL (130-400); RED CELL DISTRIBUTION WIDTH 14.2 % (11.5-14.5)
[2018-02-27 07:14] LABS: CALCIUM 8.7 mg/dL (8.5-10.1); CARBON DIOXIDE 23.2 mmol/L (21-32); CREATININE SERUM 1.5 mg/dL (0.7-1.3); MAGNESIUM 1.8 mg/dL (1.8-2.4); PHOSPHOROUS 3.8 mg/dL (2.5-4.9); POTASSIUM SERUM 3.9 mmol/L (3.5-5.1)
--- NOTE | 2018-02-27 07:40 | NUR ---
RECEIVED PATIENT RESTING IN BED. A/0X4. TELE MONITOR IN PLACE. DENIES CHEST PAIN AT THIS TIME. TRACE OF EDEMA NOTED TO INDEX FINGERS. PATIENT ON 2L NC, PATIENT C/O OF MILD SOB. HOB WAS RAISED, PULSE OX 97%. PATIENT IS AMBULATORY, CANE AT BEDSIDE. NS IV TO LFA INFUSING AT 20ML/HR. IV SITE CDI, NO REDNESS, SWELLING OR GOLDIE AT SITE. WILL CONTINUE TO MONITOR FOR CHANGES. CALL LIGHT WITHIN REACH. BED IN LOW POSITION.
--- NOTE | 2018-02-27 09:06 | NUR ---
PATIENT C/O PAIN 09/19. INSTRUCTED PATIENT TO REPOSITION, TO RELIEVE PAIN. WILL MEDICATE PRN MORPHINE PER PROTOCOL (SEE EMAR) . WILL CONTINUE TO MONITOR.
[2018-02-27] MEDS ORDERED: ISOSORBIDE MONO30 MG PO (11:25)
[2018-02-27 15:44] VITALS: BP 122/62
--- NOTE | 2018-02-27 16:05 | NUR ---
PATIENT WAS D/C HOME. DENIES PAIN AT THIS TIME. PATIENT ABLE TO DRESS SELF. PATIENT IS STABLE. NO ACUTE CHANGES NOTED. IV TO LFA REMOVED, IV CATH INTACT. TELE MONITOR REMOVED. D/C INSTRUCTIONS GIVEN, PT RECEIVED PRESCRIPTIONS, AND REPORT AT THIS TIME. PATIENT UNDERSTANDS TO FOLLOW UP WITH PCP. PATIENT TOOK HOME ALL PERSONEL BELONGINGS. ALL QUESTIONS AND CONCERNS ADDRESSED. PATIENT VERBALIZES UNDERSTANDING. PATIENT TAKEN DOWN VIA WHEEL CHAIR ACCOMPANIED BY DEAD MAIL CHECKER.
--- NOTE | 2018-02-27 17:11 | NUR ---
PATIENT RESTING IN BED WATCHING TV. NO PAIN NOTED AT THIS TIME. WILL CONTINUE TO MONITOR FOR CHANGES.
== END 2018-02-27 16:04 | disposition home or self-care (01) | DRG 194 ==
LOC: ED 18:38 → DU 21:19
PROVIDERS: Emergency Medicine; ADMIT Family Medicine
DX: I13.0 Hypertensive heart and chronic kidney disease with heart failure and stage 1 through stage 4 chronic kidney disease, or unspecified chronic kidney disease (principal); N17.0 Acute kidney failure with tubular necrosis; I50.43 Acute on chronic combined systolic (congestive) and diastolic (congestive) heart failure; E44.1 Mild protein-calorie malnutrition; E11.22 Type 2 diabetes mellitus with diabetic chronic kidney disease; N18.9 Chronic kidney disease, unspecified; D64.9 Anemia, unspecified; I48.2 Chronic atrial fibrillation; I42.9 Cardiomyopathy, unspecified; E83.42 Hypomagnesemia; E83.39 Other disorders of phosphorus metabolism; Q60.0 Renal agenesis, unilateral; F15.10 Other stimulant abuse, uncomplicated; F12.10 Cannabis abuse, uncomplicated; Z68.34 Body mass index [BMI] 34.0-34.9, adult; Z95.810 Presence of automatic (implantable) cardiac defibrillator; Z79.84 Long term (current) use of oral hypoglycemic drugs
CPT/HCPCS: 82962; 83880; 84439; J1940; J2270; Q0092

== ENCOUNTER 2018-03-18 12:41 | Emergency (ER) | payer MEDICAID ==
[~2018-03-18] VITALS: Ht 188 cm; Wt 134.3 kg
[~2018-03-18 12:41] MED LIST changes: +ISOSORBIDE MONO30 MG PO
[2018-03-18 13:36] LABS: BASOPHIL % 0.7 % (0-2); PLATELET COUNT 193 x10^3mcL (130-400)
[2018-03-18 13:37] LABS: CALCIUM 8.6 mg/dL (8.5-10.1); CARBON DIOXIDE 23.3 mmol/L (21-32); CREATININE SERUM 1.4 mg/dL (0.7-1.3); POTASSIUM SERUM 4.1 mmol/L (3.5-5.1)
[2018-03-18 13:40] LABS: RED CELL DISTRIBUTION WIDTH 14.6 % (11.5-14.5)
[2018-03-18 13:41] LABS: ALBUMIN 3.5 g/dL (3.4-5.0); BILIRUBIN TOTAL 0.28 mg/dL (0.20-1.00); TOTAL PROTEIN, SERUM 7.3 g/dL (6.4-8.2)
[2018-03-18 14:09] VITALS: BP 147/81
== END 2018-03-18 13:58 | disposition home or self-care (01) ==
LOC: ED 12:41
PROVIDERS: Emergency Medicine
DX: R07.89 Other chest pain (principal); Z88.6 Allergy status to analgesic agent; I49.9 Cardiac arrhythmia, unspecified; I10 Essential (primary) hypertension; I48.91 Unspecified atrial fibrillation; Z86.73 Personal history of transient ischemic attack (TIA), and cerebral infarction without residual deficits; Z79.01 Long term (current) use of anticoagulants
CPT/HCPCS: J1200; J2270; Q0092

== ENCOUNTER 2018-04-20 00:36 | Inpatient (IN) | payer OTHER ==
[~2018-04-20] VITALS: Ht 188 cm; Wt 132.0 kg
[2018-04-20 01:53] LABS: BASOPHIL % 1.4 % (0-2); PLATELET COUNT 183 x10^3mcL (130-400); RED CELL DISTRIBUTION WIDTH 13.2 % (11.5-14.5)
[2018-04-20 02:15] LABS: CALCIUM 8.5 mg/dL (8.5-10.1); CARBON DIOXIDE 26.9 mmol/L (21-32); CREATININE SERUM 1.4 mg/dL (0.7-1.3); POTASSIUM SERUM 4.2 mmol/L (3.5-5.1)
[2018-04-20 02:22] LABS: ALBUMIN 3.8 g/dL (3.4-5.0); BILIRUBIN TOTAL 0.48 mg/dL (0.20-1.00); TOTAL PROTEIN, SERUM 7.5 g/dL (6.4-8.2)
[2018-04-20 04:29] LABS: PHOSPHOROUS 3.2 mg/dL (2.5-4.9)
[2018-04-20 04:34] LABS: CHOLESTEROL/HDL RATIO 4.9
[2018-04-20 04:39] LABS: FREE T4 0.81 ng/dL (0.76-1.46); FREE THYROXINE INDEX 1.8 ug/dL (1.4-4.5); T4(THYROXINE) 5.7 ug/dL (4.7-13.3)
[2018-04-20 08:16] LABS: T3 TOTAL 1.37 ng/mL
[2018-04-20 09:04] LABS: UA SPECIFIC GRAVITY >=1.030 (1.005-1.035); microscopic required? YES; urine erythrocyte NEGATIVE (NEGATIVE)
[2018-04-20 09:54] LABS: AMPHETAMINE QUAL UR NONE DETECTED (See below)
[2018-04-20 13:25] VITALS: BP 125/88
[2018-04-20 17:00] VITALS: BP 133/87
[2018-04-20 21:11] VITALS: BP 106/68
[2018-04-21 05:16] VITALS: BP 121/63
[2018-04-21 06:13] LABS: BASOPHIL % 0.8 % (0-2); PLATELET COUNT 180 x10^3mcL (130-400); RED CELL DISTRIBUTION WIDTH 14.5 % (11.5-14.5)
[2018-04-21 06:31] LABS: CALCIUM 8.6 mg/dL (8.5-10.1); CREATININE SERUM 1.4 mg/dL (0.7-1.3); POTASSIUM SERUM 3.9 mmol/L (3.5-5.1)
[2018-04-21 08:44] VITALS: BP 111/70
[2018-04-21 11:06] VITALS: BP 111/70
== END 2018-04-21 11:35 | disposition home or self-care (01) | DRG 812 ==
LOC: ED 00:36 → DU 02:41
PROVIDERS: Emergency Medicine; ADMIT Internal Medicine
DX: T43.621A Poisoning by amphetamines, accidental (unintentional), initial encounter (principal); N17.0 Acute kidney failure with tubular necrosis; I48.0 Paroxysmal atrial fibrillation; I50.22 Chronic systolic (congestive) heart failure; I11.0 Hypertensive heart disease with heart failure; I42.9 Cardiomyopathy, unspecified; E78.5 Hyperlipidemia, unspecified; E11.65 Type 2 diabetes mellitus with hyperglycemia; F12.10 Cannabis abuse, uncomplicated; Q60.0 Renal agenesis, unilateral; Z95.810 Presence of automatic (implantable) cardiac defibrillator; Z86.73 Personal history of transient ischemic attack (TIA), and cerebral infarction without residual deficits; Y92.89 Other specified places as the place of occurrence of the external cause; Z88.8 Allergy status to other drugs, medicaments and biological substances
CPT/HCPCS: 82962; 83880; 84439; J1940; J2270; J2405; J7030; Q0092

== ENCOUNTER 2018-05-11 15:56 | Inpatient (IN) | payer OTHER ==
[~2018-05-11] VITALS: Ht 188 cm; Wt 131.7 kg
[2018-05-11 16:09] VITALS: Ht 188 cm; Wt 131.7 kg
--- NOTE | 2018-05-11 16:12 | NUR ---
EKG IN PROGRESS.
--- NOTE | 2018-05-11 16:27 | NUR ---
PT BIB SELF C/O PRESSURE LIKE RADIATING TO LEFT SHOULDER CHEST PAIN AN HOUR AGO . PT STS "I WAS JUST SITTING IN A CHAIR AN IT JUST STARTED. PT ASLO C/O PRODUCTIVE YELLOW PHLEM COUGH X 3 DAY. BILATERAL WHEEZES AND CRACKLES HEARD IN LUNG ECHOLS. PT IS AAOX3, RESP E/U, SKIN IS PALE, MOIST AND WARM. PT ALSO C/O DIZZINESS, + NASUEA X 1 HOUR. PT GOWNED, PLACED ON FULL CM, VSS, NSR, MSE DONE BY . AWAITING FURTHER ORDERS.
[2018-05-11 16:39] LABS: BASOPHIL % 1.2 % (0-2); PLATELET COUNT 213 x10^3mcL (130-400)
[2018-05-11 16:40] LABS: RED CELL DISTRIBUTION WIDTH 14.8 % (11.5-14.5)
--- NOTE | 2018-05-11 16:55 | NUR ---
MEDICATED PER MD ORDER, PT TOLERATED WELL, AAOX4, RESP LABORED ADN EVEN, SKIN IS PALE, WARM AND MOIST. PT ON FULL CM, VSS, NSR, WILL CONT TO MONITOR.
--- NOTE | 2018-05-11 16:58 | NUR ---
RT AT BEDSIDE BRETHING TREATMENT IN PROGRESS.
[2018-05-11 17:02] LABS: CALCIUM 8.5 mg/dL (8.5-10.1); CARBON DIOXIDE 24.4 mmol/L (21-32); CREATININE SERUM 1.8 mg/dL (0.7-1.3); POTASSIUM SERUM 3.7 mmol/L (3.5-5.1)
[2018-05-11 17:09] LABS: BILIRUBIN TOTAL 0.49 mg/dL (0.20-1.00); TOTAL PROTEIN, SERUM 7.9 g/dL (6.4-8.2)
--- NOTE | 2018-05-11 17:51 | NUR ---
MEDICATED PATIENT PER MD ORDERS, SEE EMAR. PT TOLERATED WELL. PT IS AAOX4, RESP E/U, SKIN IS PINK, WARM AND DRY. PT ON FULL CM, VSS. WILL CONT TO MONITOR.
--- NOTE | 2018-05-11 18:50 | NUR ---
PT IN POSTION OF COMFORT WITH EYES CLOSED. NO SIGNS OF DISTRESS A THIS TIME, RESP E/U, SKIN IS PINK, WARM AND DRY. WILL CONT TO MONITOR.
--- NOTE | 2018-05-11 18:55 | NUR ---
GAVE REPORT TO RICKY ESCOBAR ON TELE WHO WILL RESUME FURTHER CARE OF THIS PATIENT.
[2018-05-11 19:09] LABS: MAGNESIUM 2.1 mg/dL (1.8-2.4); PHOSPHOROUS 2.8 mg/dL (2.5-4.9)
[2018-05-11 19:17] LABS: T3 TOTAL 0.98 ng/mL
--- NOTE | 2018-05-11 19:17 | NUR ---
RECEIVED PT FROM ED VIA [facility], CAME IN DUE TO CHEST PAIN. AAOX4. DENIES HEADACHE/DIZZINESS. ABLE TO FOLLOW COMMANDS. C/O MILD SOB, CRACKLES NOTED ON AUSCULTATION. O2 SAT=95% ON 3LPM/NC. W/ PRODUCTIVE COUGH, EXPECTORATES YELLOW PHLEGM. C/O 9/10 PRESSURE LEFT SIDED CHEST PAIN, SR W/ BBB ON THE MONITOR. STATED THAT HE HAS MILD NUMBNESS ON THE LEFT ARM. DENIES ABDOMINAL DISCOMFORT. BOWEL SOUNDS ACTIVE. VOIDS. IV SITE ON THE LEFT HAND GAUGE 22 IS PATENT AND INTACT. SIDE RAILS UPX2. CALL LIGHT ON REACH. ENDORSED TO PRIMARY NURSE LULU FOR CONTINUITY OF CARE
[2018-05-11 19:29] VITALS: BP 126/46
[2018-05-11 19:41] LABS: CHOLESTEROL/HDL RATIO 4.6
--- NOTE | 2018-05-11 19:45 | NUR ---
RECEIVED PT. PT AAOX4 DENIES ANY HEADACHE OR DIZZINESS. PT ON 3L/MIN NC, CRACKLES ON AUSCULTATION, NO SOB NOTED. TELE 35 SR W/ BBB HR 95, PT REPORTS TO CONTINUE TO HAVE CHEST PAIN WITH LEFT ARM NUMBNESS. IV LEFT HAND. PT AMBULATORY. DENIES N/V OR ABD PAIN. CALL BUTTON WITHIN REACH. WILL CONTINUE TO MONITOR.
[2018-05-11 19:46] LABS: FREE T4 1.02 ng/dL (0.76-1.46); FREE THYROXINE INDEX 3.2 ug/dL (1.4-4.5)
--- NOTE | 2018-05-11 20:11 | NUR ---
PT REQUESTING PAIN MEDICAITON, DR RENEE MADE AWARE.
[2018-05-11] MEDS ORDERED: XARELTO10 M1 PO (20:35)
--- NOTE | 2018-05-11 21:00 | NUR ---
PT REPORTED TO CONTINUED HAVING CHEST PAIN, DR RENEE MADE AWARE PT REQUESTING MORPHINE, MEDICATED PER EMAR. WILL CONTINUE TO MONITOR.
[2018-05-11 21:54] VITALS: BP 126/46
--- NOTE | 2018-05-12 00:54 | NUR ---
PT RESTING, BREATHING EVEN AND UNLABORED, NC 3L/MIN WITH NO SOB NOTED. SAFETY PRECAUTIONS IN PLACE. WILL CONTINUE TO MONITOR.
--- NOTE | 2018-05-12 04:14 | NUR ---
PT REPORTED HAVING PAIN, REQUESTING FOR PAIN MEDICATION. MEDICATED PER EMAR. WILL CONTINUE TO MONITOR.
--- NOTE | 2018-05-12 05:30 | NUR ---
PT SLEPT MOST OF THE NIGHT WITH NO SIGNS OF DISTRESS NOTED. IV RIGHT HAND PATENT, SL. BREATHING EVEN AND UNLABORED PT ON NC 3L/MIN ALL NIGHT WITH NO SIGNS OF RESP DISTRESS. PT REMOVED NC AT THIS TIME STATES HE DOESNT NEED IT, O2SAT 94% INSTRUCTED PT ON THE NEED OF OXYGEN, WILL CONTINUE TO MONITOR. SAFETY PRECAUTIONS IN PLACE.
[2018-05-12 06:09] VITALS: BP 119/64
[2018-05-12 07:25] LABS: CALCIUM 8.4 mg/dL (8.5-10.1); CARBON DIOXIDE 25.5 mmol/L (21-32); CREATININE SERUM 1.6 mg/dL (0.7-1.3); POTASSIUM SERUM 3.6 mmol/L (3.5-5.1)
--- NOTE | 2018-05-12 07:25 | NUR ---
PT RESTING, BREATHING EVEN AND UNLABORED WITH NO SIGNS OF DISTRESS NOTED. ENDORSED CARE TO DAY SHIFT RN, ALL QUESTIONS ADDRESSED.
[2018-05-12 07:26] LABS: BASOPHIL % 1.6 % (0-2); PLATELET COUNT 185 x10^3mcL (130-400)
[2018-05-12 07:39] LABS: RED CELL DISTRIBUTION WIDTH 14.7 % (11.5-14.5)
[2018-05-12 07:41] LABS: microscopic required? NO
--- NOTE | 2018-05-12 08:00 | NUR ---
RECEIVED PATIENT FROM LUZ LAWSON. PATIENT STATES THAT HIS BREATHING IS BOTHERING HIM, RESP TREATMENT OFFERED & CALLED RT. NO OTHER COMPLAINTS. WILL CONTINUE TO MONITOR.
[2018-05-12 08:25] LABS: UA SPECIFIC GRAVITY >=1.030 (1.005-1.035); urine erythrocyte NEGATIVE (NEGATIVE)
[2018-05-12 08:39] LABS: AMPHETAMINE QUAL UR NONE DETECTED (See below)
--- NOTE | 2018-05-12 08:56 | NUR ---
PATIENT IN BED, STATES THAT THE BREATHING TREATMENT HAS IMPROVED HIS BREATHING. PATIENT ALSO HAS COMPLAINTS OF PAIN, PRN MORPHINE IVP ADMIN. WILL CONTINUE TO EVALUATE.
[2018-05-12 10:22] VITALS: BP 120/64
--- NOTE | 2018-05-12 10:47 | NUR ---
DR VALENTIN & DR GORDON IN W PATIENT. UPDATED PATIENT ON PLAN OF CARE. NO COMPLAINTS AT THIS TIME, DENIES SOB. WILL CONTINUE TO MONITOR. CALL LIGHT IN REACH.
--- NOTE | 2018-05-12 12:40 | NUR ---
PATIENT IN BED RESTING, HE STATES THAT HIS PAIN HAS DECREASED TO A 6. NO FURTHER COMPLAINTS AT THIS TIME. EATING LUNCH TRAY. CALL LIGHT IN REACH.
[2018-05-12 13:08] VITALS: BP 127/72
--- NOTE | 2018-05-12 15:29 | NUR ---
PATIENT IN BED USING CELLPHONE. NO COMPLAINTS OF PAIN AT TIME. CALL LIGHT IN REACH, WILL CONTINUE TO MONITOR. CALL LIGHT IN REACH.
[2018-05-12 16:37] VITALS: BP 96/65
--- NOTE | 2018-05-12 18:09 | NUR ---
PATIENT SEATED BY BEDSIDE EATING DINNER TRAY. NO COMPLAINTS OF PAIN AT THIS TIME, DENIES SOB. WILL ENDORSE TO ONCOMING NURSE. CALL LIGHT IN REACH.
[2018-05-12 20:09] VITALS: BP 107/56
--- NOTE | 2018-05-12 20:11 | NUR ---
PATIENT RECEIVED IN BED AWAKE, ALERT AND ORIENTED X4, SPEECH CLEAR. BREATHING EVEN AND UNLABORED, BS WITH FEW FINE CRACKLES UPPER LOBE,PATIENT STATED OCC PRODUCTIVE COUGH YELLOW TO WHITISH CLEARED WITH COUGHING.DENIES SOB, FOUND ON ROOM AIR AND IS TOLERATING IT SAT 98%. TELE#35 SR W/ BBB NO PACER BEATS NOTED ON MONITOR, HR=68BPM. HEPLOCK TO RT HAND PATENT AND INTACT. AMBULATORY WITH STEADY GAIT. PATIENT INFORMED ABOUT POC THIS SHIFT, ALL QUESTIONS AND CONCERNS ADDRESSED. SAFETY/FALL PRECAUTIONS MAINTAINED. WILL CONTINUE TO MONITOR. PATIENT APPEARED COMFORTABLE.
--- NOTE | 2018-05-12 21:26 | NUR ---
SCHEDULED MEDS ADMINISTERED, PATIENT INFORMED ABOUT EACH MEDS ACTIONS AND PURPOSE PRIOR. TOOK PILLS WELL.N
--- NOTE | 2018-05-13 02:09 | NUR ---
CALLED AND COMPLAINED OF CHEST DISCOMFORT/PAIN, RATED AT 7/10 NON PROVOKED AND NON RADIATING. MEDICATED PRN. MADE COMFORTABLE IN BED. PLACED BACK ON 2LNC. WILL MONITOR EFFECTIVENESS.
--- NOTE | 2018-05-13 04:00 | NUR ---
CHECKED EFFECTIVENESS OF PAIN MED GIVEN SLEEPING COMFORTABLY THIS TIME.
[2018-05-13 05:29] VITALS: BP 101/57
--- NOTE | 2018-05-13 06:00 | NUR ---
PATIENT STATED SLEPT OFF AND ON DURING THE SHIFT, HAD C/O CHEST PRESSURE AND DISCOMFORTS, MEDICATED PRN AND RECEIVED DEISRED RELIEF, SR W/ BBB ON THE MONITOR. HEPLOCK FLUSHED WELL. SAFETY PRECAUTIONS OBSERVED. WILL ENDORSE CONTINUITY OF CARE TO INCOMING NURSE.
[2018-05-13 06:14] LABS: CALCIUM 8.2 mg/dL (8.5-10.1); CREATININE SERUM 1.5 mg/dL (0.7-1.3); PLATELET COUNT 202 x10^3mcL (130-400); POTASSIUM SERUM 3.7 mmol/L (3.5-5.1); RED CELL DISTRIBUTION WIDTH 14.4 % (11.5-14.5)
--- NOTE | 2018-05-13 07:09 | NUR ---
BEDSIDE JEFE OFF PERFORMED WITH INCOMING NURSE JANETH-LUZ.
[2018-05-13 08:33] VITALS: BP 138/82
--- NOTE | 2018-05-13 10:23 | NUR ---
PATIENT COMPLAINED OF 8/10 CHEST PAIN THIS AM PATIENT MEDICATED WITH MS CONTIN 15 MG, WITH AM MEDS. PATIENT REASSESSED STATES CHEST PAIN AT 5/10. REPORTED TO ALEX CONSUMER STUDIES PROFESSOR. PER [facility] REASSESS PAIN SCALE IN 60 MIN. PATIENT STATES DOES NOT WANT TO WAIT AND WANTS TO LEAVE AMA. ALEX NOTIFIED PATIENT WANTS TO LEAVE AMA. EDUCATED PATIENT ABOUT RISKS OF LEAVING AMA AND ADVISED TO SEEK MEDICAL TREATMENT IF CHEST PAIN WORSENS. PATIENT VERBALIZES UNDERSTANDING. iV REMOVED TELE MONITOR REMOVED AND RETURNED ID BAND AND ALLERGY BAND REMOVED ALL QUESTIONS AND CONCERNS ADDRESSED. ALL NEEDS ATTENDED TO. ALL PERSONAL BELONGINGS WITH PATIENT.
== END 2018-05-13 10:28 | disposition left against medical advice (07) | DRG 243 ==
LOC: ED 15:56 → DU 17:53
PROVIDERS: Emergency Medicine; ADMIT Internal Medicine
DX: K21.9 Gastro-esophageal reflux disease without esophagitis (principal); N17.0 Acute kidney failure with tubular necrosis; M94.0 Chondrocostal junction syndrome [Tietze]; I42.7 Cardiomyopathy due to drug and external agent; Q60.0 Renal agenesis, unilateral; E11.9 Type 2 diabetes mellitus without complications; I48.91 Unspecified atrial fibrillation; I11.0 Hypertensive heart disease with heart failure; Z53.21 Procedure and treatment not carried out due to patient leaving prior to being seen by health care provider; F15.21 Other stimulant dependence, in remission; I50.9 Heart failure, unspecified; F12.10 Cannabis abuse, uncomplicated; Z68.1 Body mass index [BMI] 19.9 or less, adult; Z79.84 Long term (current) use of oral hypoglycemic drugs; Z95.810 Presence of automatic (implantable) cardiac defibrillator; Z86.73 Personal history of transient ischemic attack (TIA), and cerebral infarction without residual deficits; Y92.018 Other place in single-family (private) house as the place of occurrence of the external cause; Z88.8 Allergy status to other drugs, medicaments and biological substances
CPT/HCPCS: 82962; 83880; 84439; J1200; J1940; J2270; J2405; J7620

== ENCOUNTER 2018-07-27 17:08 | Emergency (ER) | payer OTHER ==
[~2018-07-27] VITALS: Ht 188 cm; Wt 135.2 kg
[2018-07-27 17:11] VITALS: Ht 188 cm; Wt 135.2 kg
[2018-07-27 17:43] LABS: BASOPHIL % 0.5 % (0-2); PLATELET COUNT 172 x10^3mcL (130-400)
[2018-07-27 17:45] LABS: RED CELL DISTRIBUTION WIDTH 14.8 % (11.5-14.5)
[2018-07-27 17:58] LABS: AMPHETAMINE QUAL UR NONE DETECTED (See below)
[2018-07-27 18:01] LABS: ALBUMIN 3.5 g/dL (3.4-5.0); BILIRUBIN TOTAL 0.29 mg/dL (0.20-1.00); CARBON DIOXIDE 16.6 mmol/L (21-32); POTASSIUM SERUM 4.9 mmol/L (3.5-5.1); TOTAL PROTEIN, SERUM 7.7 g/dL (6.4-8.2)
[2018-07-27 18:13] LABS: CREATININE SERUM 1.6 mg/dL (0.7-1.3)
[2018-07-27 19:03] VITALS: BP 142/89
== END 2018-07-27 19:03 | disposition home or self-care (01) ==
LOC: ED 17:08
PROVIDERS: Specialist
DX: R07.89 Other chest pain (principal); I49.9 Cardiac arrhythmia, unspecified; I10 Essential (primary) hypertension; I48.91 Unspecified atrial fibrillation; Z86.73 Personal history of transient ischemic attack (TIA), and cerebral infarction without residual deficits; Z88.6 Allergy status to analgesic agent; Z95.0 Presence of cardiac pacemaker
CPT/HCPCS: 36415; 83880; Q0092

== ENCOUNTER 2018-08-23 18:22 | Emergency (ER) | payer OTHER ==
[~2018-08-23] VITALS: Ht 188 cm; Wt 137.4 kg
[2018-08-23 18:26] VITALS: Ht 188 cm; Wt 137.4 kg
[2018-08-23 19:16] LABS: BASOPHIL % 0.6 % (0-2); PLATELET COUNT 174 x10^3mcL (130-400)
[2018-08-23 19:18] LABS: RED CELL DISTRIBUTION WIDTH 15.4 % (11.5-14.5)
[2018-08-23 19:24] LABS: CREATININE SERUM 1.7 mg/dL (0.7-1.3); POTASSIUM SERUM 3.8 mmol/L (3.5-5.1)
[2018-08-23 19:29] LABS: ALBUMIN 3.9 g/dL (3.4-5.0); BILIRUBIN TOTAL 0.45 mg/dL (0.20-1.00); TOTAL PROTEIN, SERUM 7.4 g/dL (6.4-8.2)
[2018-08-23 21:04] VITALS: BP 121/71
== END 2018-08-23 21:04 | disposition home or self-care (01) ==
LOC: ED 18:22
PROVIDERS: Emergency Medicine
DX: R07.89 Other chest pain (principal); I48.91 Unspecified atrial fibrillation; I10 Essential (primary) hypertension; Z86.73 Personal history of transient ischemic attack (TIA), and cerebral infarction without residual deficits; Z86.79 Personal history of other diseases of the circulatory system; Z95.0 Presence of cardiac pacemaker
CPT/HCPCS: 36415; 83880; Q0092

== ENCOUNTER 2020-04-14 19:04 | Emergency (ER) | payer OTHER ==
[~2020-04-14] VITALS: Ht 188 cm; Wt 145.1 kg
[~2020-04-14 19:04] MED LIST changes: +ALD25 PO; +ELIQUIS5 MG PO; +LASIX40 MG PO; +LIPI10 PO; +NITOUD TOP; +ZES5 PO
[2020-04-14 19:05] VITALS: Ht 188 cm; Wt 145.1 kg
[2020-04-14 19:51] LABS: BASOPHIL % 1.1 % (0.2-1.5); PLATELET COUNT 175 x10^3mcL (152-348)
[2020-04-14 19:52] LABS: CALCIUM 9.2 mg/dL (8.5-10.1); CARBON DIOXIDE 24.7 mmol/L (21-32); CREATININE SERUM 1.6 mg/dL (0.7-1.3); POTASSIUM SERUM 3.5 mmol/L (3.5-5.1)
[2020-04-14 19:53] LABS: RED CELL DISTRIBUTION WIDTH 17.2 % (12.1-16.2)
[2020-04-14 19:57] LABS: ALBUMIN 3.6 g/dL (3.4-5.0); BILIRUBIN TOTAL 0.4 mg/dL (0.20-1.00); TOTAL PROTEIN, SERUM 7.3 g/dL (6.4-8.2)
[2020-04-14 23:26] VITALS: BP 138/88
== END 2020-04-14 23:26 | disposition home or self-care (01) ==
LOC: ED 19:04
PROVIDERS: Emergency Medicine
DX: I11.0 Hypertensive heart disease with heart failure (principal); I50.9 Heart failure, unspecified; Z20.822 Contact with and (suspected) exposure to COVID-19; I48.91 Unspecified atrial fibrillation; F15.10 Other stimulant abuse, uncomplicated; I42.9 Cardiomyopathy, unspecified; Z95.0 Presence of cardiac pacemaker; Z86.73 Personal history of transient ischemic attack (TIA), and cerebral infarction without residual deficits; Z88.6 Allergy status to analgesic agent
CPT/HCPCS: 83880; J1200; J1940; J2001; J2270